=== PATIENT | male | born 1940 | race Caucasian/White ===

== ENCOUNTER 2020-04-11 16:53 | Inpatient (IN) | payer MEDICARE ==
[~2020-04-11] VITALS: Ht 172.7 cm; Wt 79.8 kg
--- NOTE | 2020-04-11 20:50 | NUR ---
BIBS FOR C/O INSOMNIA FOR THE [AST 2 DAYS, DENIED ANY PAIN OR DISCOMFORT. VSS. WILL CONT TO MONITOR
[2020-04-11 21:14] LABS: HEMATOCRIT 47 % (39-51); HEMOGLOBIN 15.4 g/dL (13.5-17.5); LYMPHOCYTES # (AUTO) 0.3 /CMM (0.8-4.8); LYMPHOCYTES % (AUTO) 4.4 % (20.0-44.0); MEAN CORPUSCULAR HGB CONC 33 g/dl (31.0-36.0); MEAN CORPUSCULAR VOLUME 101 fL (80-96); NEUTROPHILS # (AUTO) 4.5 /CMM (1.8-8.9); NEUTROPHILS % (AUTO) 77.6 % (43.0-81.0); PLATELET COUNT (AUTO) 163 /CMM (150-450); RED BLOOD CELL COUNT(AUTO) 4.61 MIL/uL (4.5-6.0); WHITE BLOOD COUNT (AUTO) 5.8 K/uL (4.3-11.0)
[2020-04-11 21:23] LABS: CALCIUM, SERUM 10.4 mg/dL (8.5-10.1); CARBON DIOXIDE 28 mmol/L (21-32); CHLORIDE 101 mmol/L (98-107); CREATININE 1.5 mg/dL (0.6-1.3); GLUCOSE 226 mg/dL (74-106); POTASSIUM 3.9 mmol/L (3.5-5.1); SODIUM SERUM 141 mmol/L (136-145); UREA NITROGEN, BLOOD 42 mg/dL (7-18)
--- NOTE | 2020-04-11 21:29 | NUR ---
DR DWYER ON THE PHONE WITH PT'S PCP
[2020-04-11 21:49] LABS: BAND % (MANUAL) 4 % (0.0-5.0); LYMPHOCYTES % (MANUAL) 6 % (16-48); MONOCYTES % (MANUAL) 8 % (0-11.0); NEUTROPHILS % (MANUAL) 82 (42-76)
[2020-04-11 21:50] LABS: ALBUMIN 4.3 g/dL (3.4-5.0); BILIRUBIN,DIRECT 0.2 mg/dL (0.0-0.2); BILIRUBIN,TOTAL 0.5 mg/dL (0.2-1.0); TOTAL PROTEIN, SERUM 7.5 g/dL (6.4-8.2)
--- NOTE | 2020-04-11 21:58 | NUR ---
COVID TEST OBTAINED AND SENT TO LAB
[2020-04-11] MEDS ORDERED: ONDANSETRON HCL/PF - ER 4 MG/2 ML VIAL IV ONE (22:00)
[2020-04-11] MEDS ORDERED: MORPHINE SULFATE INJ 2 MG/ML DISP.SYRIN IV ONE (22:00)
[2020-04-11] MEDS ORDERED: ONDANSETRON HCL/PF 4 MG/2 ML VIAL ONE (22:07)
--- NOTE | 2020-04-11 22:28 | NUR ---
URINE COLLECTED AND SENT TO LAB
[2020-04-11] MEDS ORDERED: IV NS 0.9% 1,000 ML IV ONE (22:30)
[2020-04-11 22:46] LABS: BILIRUBIN,URINE SMALL (NEGATIVE); COLOR,URINE YELLOW (YELLOW); LEUKOCYTE ESTERASE ,URINE NEGATIVE (NEGATIVE); NITRITE, URINE NEGATIVE (NEGATIVE); PH,URINE 5.5 (5.0-8.0); PROTEIN,URINE 100 mg/dl (NEGATIVE); UGLUCOSE NEGATIVE (NEGATIVE); UROBILINOGEN,URINE 0.2 EU/dL (0.2)
--- NOTE | 2020-04-11 22:48 | NUR ---
CALL FROM LAB, RAPID COVID NEGATIVE.
[2020-04-11 23:02] LABS: RBC,URINE 0-2 /HPF (0-2); SQUAMOUS EPITHELIAL CELL,UR None Seen /HPF (None Seen); WBC,URINE 0-2 /HPF (0-3); YEAST,URINE Few /HPF (None Seen)
[2020-04-11] MEDS ORDERED: ASPI-1169 PO (23:05)
[2020-04-11] MEDS ORDERED: ATOR20TA PO (23:05)
[2020-04-11 23:21] LABS: BACTERIA,URINE None seen /HPF (None Seen)
--- NOTE | 2020-04-11 23:45 | NUR ---
JUSTIN Bernal HOSPITALIST AT BED SIDE
[2020-04-12] MEDS ORDERED: CLONIDINE HCL 0.1 MG TABLET PO PRN (00:30)
[2020-04-12] MEDS ORDERED: ACETAMINOPHEN 325 MG TABLET PO PRN (00:30)
[2020-04-12] MEDS ORDERED: BISACODYL SUPP (10 MG) 10 MG/SUPP.RECT SUPP.RECT RC PRN (00:30)
[2020-04-12] MEDS ORDERED: DEXTROSE 50%-WATER 50 ML DISP.SYRIN IV PRN (00:30)
[2020-04-12] MEDS ORDERED: IV NS 0.9% 1,000 ML IV PRN (00:30)
[2020-04-12] MEDS ORDERED: Z GUARD REMEDY 2 OZ OINT TP PRN (00:30)
[2020-04-12] MEDS ORDERED: MAG HYDROX/AL HYDROX/SIMETH 30 ML UDC PO PRN (00:30)
[2020-04-12] MEDS ORDERED: ONDANSETRON HCL/PF 4 MG/2 ML VIAL IVP PRN (00:30)
[2020-04-12] MEDS ORDERED: MAGNESIUM HYDROXIDE 30 ML UDC PO PRN (00:30)
--- NOTE | 2020-04-12 01:01 | NUR ---
CALLED PHARMACY TO VERIFY THE ADMITTING ORDERS
[2020-04-12] MEDS ORDERED: ENOXAPARIN SODIUM 40 MG/0.4 ML DISP.SYRIN SQ ONE (02:45)
[2020-04-12] MEDS: ENOXAPARIN SODIUM 40 MG/0.4 ML DISP.SYRIN SQ SCH ×2 (02:50→22:30)
[2020-04-12] MEDS ORDERED: HYDROCODONE/APAP 5/325MG TABLET ONE ×2 (06:42→13:42)
[2020-04-12] MEDS: HYDROCODONE/APAP 5/325MG TABLET PO PRN ×4 (06:49→13:43)
--- NOTE | 2020-04-12 06:50 | NUR ---
pt with c/o lower back pain, requesting pain meidcation. norco given as ordered , will cont to monitor
[2020-04-12] MEDS: BLOOD SUGAR DIAGNOSTIC 1 EACH STRIP IN SCH ×4 (07:30→22:53)
[2020-04-12] MEDS: PANTOPRAZOLE 40 MG TABLET.DR PO SCH (07:30)
[2020-04-12] MEDS ORDERED: MORPHINE SULFATE INJ 2 MG/ML DISP.SYRIN IV PRN (08:30)
[2020-04-12] MEDS: DOCUSATE SODIUM 100 MG CAPSULE PO SCH (09:00)
[2020-04-12] MEDS: ASPIRIN 81 MG TAB.CHEW PO SCH (09:00)
--- NOTE | 2020-04-12 12:00 | NUR ---
PT RESTING CALMLY IN BED, ATE BREAKFAST AND NOW EATING LUNCH
[2020-04-12] MEDS: INSULIN REGULAR, HUMAN 100 UNIT/ML 3 ML VIAL SQ PRN ×2 (12:07→18:08)
[2020-04-12 12:45] LABS: BASOPHILS % (AUTO) 0.1 % (0.0-2.0); HEMATOCRIT 45 % (39-51); HEMOGLOBIN 14.8 g/dL (13.5-17.5); LYMPHOCYTES # (AUTO) 0.1 /CMM (0.8-4.8); LYMPHOCYTES % (AUTO) 1.9 % (20.0-44.0); MEAN CORPUSCULAR HGB CONC 33 g/dl (31.0-36.0); MEAN CORPUSCULAR VOLUME 101 fL (80-96); MONOCYTES # (AUTO) 0.6 /CMM (0.1-1.30); MONOCYTES % (AUTO) 9.2 % (2.0-12.0); NEUTROPHILS % (AUTO) 88.8 % (43.0-81.0); PLATELET COUNT (AUTO) 137 /CMM (150-450); RED BLOOD CELL COUNT(AUTO) 4.47 MIL/uL (4.5-6.0); WHITE BLOOD COUNT (AUTO) 6.8 K/uL (4.3-11.0)
[2020-04-12 13:05] LABS: ALBUMIN 3.7 g/dL (3.4-5.0); BILIRUBIN,TOTAL 0.6 mg/dL (0.2-1.0); CALCIUM, SERUM 9.7 mg/dL (8.5-10.1); CREATININE 1.3 mg/dL (0.6-1.3); MAGNESIUM 2.1 mg/dL (1.8-2.4); PHOSPHORUS 3.8 mg/dL (2.5-4.9); POTASSIUM 3.8 mmol/L (3.5-5.1); TOTAL PROTEIN, SERUM 6.6 g/dL (6.4-8.2)
--- NOTE | 2020-04-12 14:06 | NUR ---
GOT BED 309-2 RN IRMA
--- NOTE | 2020-04-12 15:00 | NUR ---
ER ADMIT PT RECEIVED AFTER REPORT RECEIVED FROM FARIBA BRADY. PT RESTING COMFORTABLY IN BED. NO S/S OR C/O PAIN OR DISTRESS NOTED. SIDE RAILS UP X2, CALL LIGHT LEFT WITHIN REACH. WILL CONTINUE PLAN OF CARE.
[2020-04-12 16:00] VITALS: BP 159/100
[2020-04-12] MEDS: IV D5/ 0.9% NACL 1,000 ML IV PRN (17:57)
[2020-04-12] MEDS: ENSURE ENLIVE CHOC 237 ML CAN PO SCH (17:58)
--- NOTE | 2020-04-12 19:54 | NUR ---
CHANGE OF SHIFT REPORT PT RESTING COMFORTABLY IN BED WITH EYES CLOSED. NO S/S OR C/O PAIN OR DISTRESS NOTED. SIDERAILS UP X2, CALL LIGHT LEFT WITHIN REACH. PT KEPT CLEAN, DRY, AND COMFORTABLE. NO SIGNIFICANT CHANGES SINCE ADMISSION. REPORT GIVEN TO GUNNAR RN
--- NOTE | 2020-04-12 20:54 | NUR ---
MSRN VERBALIZES STOMACH DISCOMFORTS REQUESTED MAALOX. ADMINISTERED. TIRED LOOKING SAFETY PRECAUTIONS EMPHASIZED, APPEARS TO UNDERSTAND. ISOLATION PRECAUTIONS OBSERVED. STATED DOES NOT WANT TO BE DISTURB ONCE HE IS ASLEEP. REMINDED HAS NIGHT MEDS POST 1 HR AFTER MAALOX. AGREED. REMINDED TO CALL STAFF FOR FURTHER ASSISTANCE OR DISCOMFORTS, CALL LIGHT USE REVIEWED WITH PATIENT. CLOSELY WATCHED.
[2020-04-12 21:05] VITALS: BP 143/88
[2020-04-12] MEDS: ATORVASTATIN 10 MG TABLET PO SCH (22:28)
[2020-04-12] MEDS: SENNOSIDES 8.6 MG TABLET PO SCH (22:29)
[2020-04-12] MEDS: MIRTAZAPINE 15 MG TABLET PO SCH (22:29)
--- NOTE | 2020-04-12 22:51 | NUR ---
MSRN BS 138. REFUSED SNACKS. DUE MEDS ADMINISTERED.
[2020-04-13] MEDS ORDERED: PIPERACILLIN /TAZOBACTAM 3.375 G in IV D5W 100 ML IV SCH (02:00)
[2020-04-13 02:30] VITALS: BP 152/89
--- NOTE | 2020-04-13 02:30 | NUR ---
MSRN MOVED TO ROOM 201 VIA BED WITH ALL ISOLATION PRECAUTIONARY MEASURES OBSERVED. ENDORSED TO RN.
--- NOTE | 2020-04-13 02:30 | NUR ---
MS RN NOTES RECEIVED PATIENT FROM MS3, ALERT AND ORIENTED X 4. VERBALLY RESPONSIVE AND ABLE TO FOLLOW DIRECTIONS, NO DISTRESS NOTED. DENIES PAIN/DISCOMFORT AT THIS TIME. WILL CONTINUE TO MONITOR.
--- NOTE | 2020-04-13 04:00 | NUR ---
MS RN NOTES COVID PCR SWAB DONE.
[2020-04-13 05:59] LABS: BILIRUBIN,URINE NEGATIVE (NEGATIVE); COLOR,URINE YELLOW (YELLOW); LEUKOCYTE ESTERASE ,URINE NEGATIVE (NEGATIVE); NITRITE, URINE NEGATIVE (NEGATIVE); PH,URINE 5.5 (5.0-8.0); PROTEIN,URINE 100 mg/dl (NEGATIVE); UGLUCOSE NEGATIVE (NEGATIVE); UROBILINOGEN,URINE 0.2 EU/dL (0.2)
[2020-04-13 06:07] LABS: BACTERIA,URINE None seen /HPF (None Seen); RBC,URINE 0-2 /HPF (0-2); SQUAMOUS EPITHELIAL CELL,UR Rare /HPF (None Seen); URINE AMORPHOUS URATE Few /HPF (None Seen)
[2020-04-13 06:15] LABS: CREATININE, URINE 219.8 MG/DL (30.0-125.0); URINE TOTAL PROTEIN 140.7 mg/dL (0-11.9)
[2020-04-13 06:22] LABS: EOSINOPHIL,URINE None Seen
[2020-04-13] MEDS: BLOOD SUGAR DIAGNOSTIC 1 EACH STRIP IN SCH ×4 (06:30→22:22)
[2020-04-13] MEDS: PANTOPRAZOLE 40 MG TABLET.DR PO SCH (06:31)
[2020-04-13] MEDS: INSULIN REGULAR, HUMAN 100 UNIT/ML 3 ML VIAL SQ PRN ×2 (06:32→22:31)
--- NOTE | 2020-04-13 06:45 | NUR ---
MS RN CLOSING NOTES PATIENT IN BED, ALERT AND ORIENTED X 4. AFEBRILE WITH NO S/S OF DISTRESS OBSERVED. RIGHT FOREARM G20 IV LINE PATENT AND FLUSHING WELL. NO COMPLAINTS OF PAIN/DISCOMFORT REPORTED AT THIS TIME. BED LOW AND LOCKED ON SEMI FOWLERS POSITION. CALL LIGHT IN REACH. WILL ENDORSE TO MORNING SHIFT FOR DANIELLE.
--- NOTE | 2020-04-13 07:30 | NUR ---
ms rn received on bed,awake,alert,oriented x4,not in any form of distress, noted to have distended,abdomen, hypoactive,denies pain at this time, will monitor patient.
[2020-04-13 08:00] VITALS: BP 144/68
[2020-04-13] MEDS: ENSURE ENLIVE CHOC 237 ML CAN PO SCH ×3 (08:00→17:00)
--- NOTE | 2020-04-13 08:50 | NUR ---
ms marcy carrera served,due meds given, barely tolerated, patient has episodes of vomiting x2
[2020-04-13 09:27] LABS: ALANINE AMINOTRANSFERASE 29 U/L (12-78); ALBUMIN 3.3 g/dL (3.4-5.0); ALKALINE PHOSPHATASE 51 U/L (46-116); ASPARTATE AMINOTRANSFERASE 40 U/L (15-37); BILIRUBIN,TOTAL 0.7 mg/dL (0.2-1.0); CALCIUM, SERUM 9.9 mg/dL (8.5-10.1); CARBON DIOXIDE 26 mmol/L (21-32); CHLORIDE 105 mmol/L (98-107); CREATININE 1.9 mg/dL (0.6-1.3); GLUCOSE 141 mg/dL (74-106); MAGNESIUM 2.4 mg/dL (1.8-2.4); PHOSPHORUS 3.6 mg/dL (2.5-4.9); POTASSIUM 4.1 mmol/L (3.5-5.1); SODIUM SERUM 144 mmol/L (136-145); TOTAL PROTEIN, SERUM 6.4 g/dL (6.4-8.2); UREA NITROGEN, BLOOD 61 mg/dL (7-18)
[2020-04-13 09:29] LABS: EOSINOPHILS % (AUTO) 0.1 % (0.0-6.0); HEMATOCRIT 46 % (39-51); HEMOGLOBIN 15.2 g/dL (13.5-17.5); LYMPHOCYTES # (AUTO) 0.2 /CMM (0.8-4.8); LYMPHOCYTES % (AUTO) 2.3 % (20.0-44.0); MEAN CORPUSCULAR HGB CONC 33 g/dl (31.0-36.0); MEAN CORPUSCULAR VOLUME 101 fL (80-96); MONOCYTES # (AUTO) 0.5 /CMM (0.1-1.30); MONOCYTES % (AUTO) 5.6 % (2.0-12.0); NEUTROPHILS # (AUTO) 8.5 /CMM (1.8-8.9); PLATELET COUNT (AUTO) 142 /CMM (150-450); RED BLOOD CELL COUNT(AUTO) 4.55 MIL/uL (4.5-6.0); WHITE BLOOD COUNT (AUTO) 9.2 K/uL (4.3-11.0)
[2020-04-13 09:44] LABS: CHOLESTEROL 100 mg/dL (<200); CREATINE KINASE, TOTAL 504 U/L (39-308); HDL CHOLESTEROL 67 mg/dL (40-60); LDL 24 mg/dL (0-99); TRIGLYCERIDES 53 mg/dL (30-150)
[2020-04-13] MEDS: HYDROCODONE/APAP 5/325MG TABLET PO PRN (09:58)
[2020-04-13] MEDS: DOCUSATE SODIUM 100 MG CAPSULE PO SCH (10:01)
--- NOTE | 2020-04-13 15:00 | NUR ---
ms rn poly small,patientabdomen is distended, with orders made and carried out.
[2020-04-13 16:00] VITALS: BP 132/55
--- NOTE | 2020-04-13 16:35 | NUR ---
ms rn went down to ct abdomen via wheelchair.
[2020-04-13] MEDS ORDERED: PIPERACILLIN /TAZOBACTAM 3.375 G in IV D5W 50 ML IV ONE (18:00)
[2020-04-13 18:43] LABS: CALCIUM, SERUM 10.1 mg/dL (8.5-10.1); CARBON DIOXIDE 26 mmol/L (21-32); CHLORIDE 104 mmol/L (98-107); CREATININE 2.6 mg/dL (0.6-1.3); GLUCOSE 187 mg/dL (74-106); POTASSIUM 4.1 mmol/L (3.5-5.1); SODIUM SERUM 144 mmol/L (136-145); UREA NITROGEN, BLOOD 72 mg/dL (7-18)
[2020-04-13 19:49] LABS: BASOPHILS # (AUTO) 0.1 /CMM (0.0-0.2); HEMATOCRIT 46 % (39-51); LYMPHOCYTES # (AUTO) 0.2 /CMM (0.8-4.8); MEAN CORPUSCULAR HGB CONC 33 g/dl (31.0-36.0); MEAN CORPUSCULAR VOLUME 102 fL (80-96); MONOCYTES # (AUTO) 0.6 /CMM (0.1-1.30); MONOCYTES % (AUTO) 6.1 % (2.0-12.0); NEUTROPHILS # (AUTO) 9.6 /CMM (1.8-8.9); NEUTROPHILS % (AUTO) 90.9 % (43.0-81.0); PLATELET COUNT (AUTO) 139 /CMM (150-450); RED BLOOD CELL COUNT(AUTO) 4.49 MIL/uL (4.5-6.0); WHITE BLOOD COUNT (AUTO) 10.5 K/uL (4.3-11.0)
[2020-04-13 20:00] VITALS: BP 153/92
--- NOTE | 2020-04-13 20:00 | NUR ---
RN NOTE PT RECEIVED IN BED. PT IS A/A/O X4. IS ON RA SATING 97% HAS UNLABORED BREATHING. SAFETY MEASURE IN PLACE BED AT LOWEST POSITION, LOCKED, SIDE RAILS UP X2, CALL LIGHT IN REACH.
[2020-04-13] MEDS ORDERED: PIPERACILLIN /TAZOBACTAM 2.25 G in IV D5W 50 ML IV SCH (21:00)
[2020-04-13] MEDS: MIRTAZAPINE 15 MG TABLET PO SCH (22:00)
[2020-04-13] MEDS: SENNOSIDES 8.6 MG TABLET PO SCH (22:00)
[2020-04-13] MEDS: ATORVASTATIN 10 MG TABLET PO SCH (22:00)
[2020-04-13] MEDS: ENOXAPARIN SODIUM 40 MG/0.4 ML DISP.SYRIN SQ SCH (22:00)
--- NOTE | 2020-04-13 22:25 | NUR ---
lovenox not administered, because pt has ng tube and drainage is brownish color.
[2020-04-14] MEDS ORDERED: LORAZEPAM INJ 2 MG/ML VIAL IV ONE (01:30)
--- NOTE | 2020-04-14 01:40 | NUR ---
PT HAD DIFFICULTY FALLING ASLEEP, RECEIVED ORDER FROM DR GALAVIZ ATIVAN 0.5 MG IV ONCE, ADMINISTERED BUT FORGOT TO SCAN.
[2020-04-14] MEDS: IV D5/ 0.9% NACL 1,000 ML IV PRN (01:56)
[2020-04-14] MEDS: PIPERACILLIN /TAZOBACTAM 3.375 G in IV D5W 100 ML IV SCH ×3 (02:05→17:03)
--- NOTE | 2020-04-14 02:05 | NUR ---
ZOSYN ADMINISTERED, ENTERED BARCODE MANUALLY BECAUSE PHARMACY CHANGED THE TIME AND RESCHEDULED IT,BUT NEW LABEL WAS NOT AVAILABLE.
--- NOTE | 2020-04-14 07:24 | NUR ---
RN NOTE PT STAYED STABLE, NO ACUTE CHANGES , REPORT GIVEN TO INCOMING SHIFT FOR DANIELLE.
--- NOTE | 2020-04-14 07:30 | NUR ---
TELE/RN OPENING NOTE Patient resting in bed, A&O x 2-3. No complaints of pain/discomfort at this time. Breathing even and non-labored on RA, no SOB noted. No cardiac distress noted. IV access noted on L hand#20 g, patent and intact, and flushing well. Sensation from all peripheral extremities intact. Bed locked to its lowest position, side rails x 2 up, call light in hand. Will continue with current medical management.
[2020-04-14 08:00] VITALS: BP 139/70
[2020-04-14] MEDS: ENSURE ENLIVE CHOC 237 ML CAN PO SCH ×3 (08:00→17:00)
--- NOTE | 2020-04-14 08:00 | NUR ---
MS/RN NOTE Dom Grullon [place] at bedside, assisted in NG tube insertion. NG tube inserted in the right nare 18 fr, 55 cm inserted and auscultated. Placed patient on bilateral soft wrist restraints since patient has been reported to pull lines and tubes per power and recovery shift engineer. Upon attempting to insert NG tube, patient was trying to pull it out. Will check circulation, temperature, and sensation around upper extremities every 2 hrs. Ordered stat chest x-ray for positive placement check. Addendum: 04/14/20 at 2117 by ZOEY METZGER RN Per [place], place NG tube on intermittent suction, coffee ground drainage noted.
[2020-04-14 08:07] LABS: PTH, INTACT 35 pg/mL (15-65)
[2020-04-14 08:34] LABS: BASOPHILS % (AUTO) 0.1 % (0.0-2.0); EOSINOPHILS % (AUTO) 0.1 % (0.0-6.0); HEMATOCRIT 46 % (39-51); HEMOGLOBIN 15.1 g/dL (13.5-17.5); LYMPHOCYTES # (AUTO) 0.3 /CMM (0.8-4.8); LYMPHOCYTES % (AUTO) 2.9 % (20.0-44.0); MEAN CORPUSCULAR HGB CONC 33 g/dl (31.0-36.0); MEAN CORPUSCULAR VOLUME 102 fL (80-96); MONOCYTES # (AUTO) 0.6 /CMM (0.1-1.30); MONOCYTES % (AUTO) 6.2 % (2.0-12.0); NEUTROPHILS # (AUTO) 8.5 /CMM (1.8-8.9); NEUTROPHILS % (AUTO) 90.7 % (43.0-81.0); PLATELET COUNT (AUTO) 148 /CMM (150-450); RED BLOOD CELL COUNT(AUTO) 4.49 MIL/uL (4.5-6.0); WHITE BLOOD COUNT (AUTO) 9.3 K/uL (4.3-11.0)
[2020-04-14 08:59] LABS: CALCIUM, SERUM 9.9 mg/dL (8.5-10.1); CARBON DIOXIDE 22 mmol/L (21-32); CHLORIDE 104 mmol/L (98-107); CREATININE 3.5 mg/dL (0.6-1.3); GLUCOSE 161 mg/dL (74-106); POTASSIUM 4.1 mmol/L (3.5-5.1); SODIUM SERUM 142 mmol/L (136-145)
[2020-04-14] MEDS: DOCUSATE SODIUM 100 MG CAPSULE PO SCH (09:00)
[2020-04-14] MEDS: ASPIRIN 81 MG TAB.CHEW PO SCH (09:00)
[2020-04-14] MEDS: BLOOD SUGAR DIAGNOSTIC 1 EACH STRIP IN SCH ×4 (09:37→22:31)
[2020-04-14] MEDS: INSULIN REGULAR, HUMAN 100 UNIT/ML 3 ML VIAL SQ PRN ×2 (09:38→13:09)
[2020-04-14 10:24] LABS: UREA NITROGEN, BLOOD 93 mg/dL (7-18)
[2020-04-14] MEDS ORDERED: IV NS 0.9% 1,000 ML IV ONE (11:00)
[2020-04-14] MEDS ORDERED: HEPARIN SODIUM, PORCINE 5000 UNITS/1 ML VIAL SQ SCH (12:00)
[2020-04-14] MEDS ORDERED: DIATR MEGLU/DIATRIZOATE SODIUM 120 ML BOTTLE (GASTROGRAPHIN) ONE (12:25)
--- NOTE | 2020-04-14 17:00 | NUR ---
MS/RN NOTE Dom GLAZING SUPERINTENDENT spoke with Dr. Grimes regarding patient's condition, states patient will be transferred to another hospital for higher level of care, awaiting for case management for arrangement.
[2020-04-14] MEDS: IV NS 0.9% 1,000 ML IV PRN (17:04)
--- NOTE | 2020-04-14 19:30 | NUR ---
MS/RN CLOSING NOTE Patient resting in bed, A&O x 2-3. All needs met and attended to. No complaints of pain/discomfort at this time. Breathing even and non-labored on RA, no SOB noted. No cardiac distress noted. IV access noted on L hand#20 g, patent and intact, and flushing well. NG tube on right nare in place, 70 cm inserted, on intermittent suction, coffee-ground drainage noted. Sensation and circulation from all peripheral extremities intact. Fall precautions maintained, will endorse to editor greeting card nurse.
--- NOTE | 2020-04-14 19:30 | NUR ---
MS/RN OPENING NOTES RECEIVED PATIENT IN BED RESTING. PATIENT IS ALERT AND ORIENTED X 2. NO SIGNS OF SOB OR RESPIRATORY DISTRESS NOTED. PATIENT IN NO SIGNS OF DISTRESS. PATIENT HAS IV ACCESS ON LEFT HAND #20G INTACT FLUSHING WELL. NG TUBE IN PLACE RIGHT NARES AT 70CM, INTER. SUCTION COFFEE GROUND DRAINAGE. BILATERAL RESTRAINTS IN PLACE CIRCULATION GOOD. SAFETY MEASURES ARE IN PLACE, BED IS LOCKED AND PLACED IN THE LOW POSITION, SIDE RAILS UP X 2. CALL LIGHT IS WITHIN REACH WILL MONITOR THROUGH OUT SHIFT.
[2020-04-14] MEDS: SENNOSIDES 8.6 MG TABLET PO SCH (21:26)
[2020-04-14] MEDS: MIRTAZAPINE 15 MG TABLET PO SCH (21:26)
[2020-04-14] MEDS: ATORVASTATIN 10 MG TABLET PO SCH (21:26)
[2020-04-14] MEDS: ENOXAPARIN SODIUM 40 MG/0.4 ML DISP.SYRIN SQ SCH (21:26)
[2020-04-14 21:46] VITALS: BP 157/65
[2020-04-15] MEDS: PIPERACILLIN /TAZOBACTAM 3.375 G in IV D5W 100 ML IV SCH ×3 (01:56→18:06)
[2020-04-15 04:00] VITALS: BP 152/75
--- NOTE | 2020-04-15 05:45 | NUR ---
MS/RN NOTES PATIENT REMOVED BILATERAL SOFT WRIST RESTRAINTS AND PULLED OUT NG TUBE. PATIENT IS ALERT AND ORIENTED X 4. TWO NURSES ATTEMPTED TO REINSERT NEW NG TUBE, PATIENT REFUSED. RISK AND BENEFITS HAVE BEEN EXPLAINED TO THE PATIENT. MD HAS BEEN NOTIFIED. PATIENT IN NO ACUTE DISTRESS. WILL CONTINUE TO MONITOR.
[2020-04-15 06:06] LABS: *SPE A/G RATIO 1.2 (0.7-1.7); *SPE ALBUMIN 3.1 g/dL (2.9-4.4); *SPE ALPHA-1-GLOBULIN 0.5 g/dL (0.0-0.4); *SPE ALPHA-2-GLOBULIN 0.9 g/dL (0.4-1.0); *SPE BETA GLOBULIN 0.8 g/dL (0.7-1.3); *SPE GLOBULIN, TOTAL 2.6 g/dL (2.2-3.9); *SPE M-SPIKE Not Observed g/dL (Not Observed); *SPEGAMMA GLOBULIN 0.5 g/dL (0.4-1.8)
--- NOTE | 2020-04-15 06:55 | NUR ---
MS/RN CLOSING NOTES PATIENT IN BED SLEEPING. PATIENT IS ALERT AND ORIENTED X 4. NO SIGNS OF SOB OR RESPIRATORY DISTRESS NOTED. PATIENT IN NO SIGNS OF DISTRESS. PATIENT HAS IV ACCESS ON LEFT HAND #20G INTACT FLUSHING WELL. BILATERAL RESTRAINTS HAVE BEEN REMOVED AT THIS TIME. PATIENT REMOVED NG TUBE THIS MORNING, PATIENT STILL REMOVED TO HAVE NEW ONE REINSERTED. NEEDS HAVE BEEN MET DURING SHIFT. SAFETY MEASURES ARE IN PLACE, BED IS LOCKED AND PLACED IN THE LOW POSITION, SIDE RAILS UP X 2. CALL LIGHT WITHIN REACH. WILL ENDORSE CARE TO DAY SHIFT NURSE.
--- NOTE | 2020-04-15 07:30 | NUR ---
MS RN OPENING NOTES BEDSIDE ENDORSEMENT DONE. PATIENT IS IN BED SLEEPING, ABLE TO BE AWAKENED. ALERT AND ORIENTED X2-3. BREATHING EVEN AND UNLABORED, TOLERATING ROOM AIR. NO RESPIRATORY DISTRESS NOTED. IV LINE ON LEFT HAND #20G INTACT AND PATENT. BILATERAL RESTRAINTS HAVE BEEN REMOVED AT THIS TIME PER PREVIOUS SHIFT RN REPORT. PATIENT HAS NO NG TUBE THIS SECONDARY TO REPORTED REMOVAL. TRIED TO ASK PATIENT IF NGT CAN BE REINSERTED BUT PATIENT REFUSED. SAFETY MEASURES IN PLACE: BED IS LOCKED AND ON LOWEST POSITION, SIDE RAILS UP X 2, CALL LIGHT WITHIN REACH. WILL CONTINUE TO MONITOR.
[2020-04-15] MEDS: BLOOD SUGAR DIAGNOSTIC 1 EACH STRIP IN SCH ×4 (07:32→22:00)
[2020-04-15 07:39] LABS: BASOPHILS % (AUTO) 0.1 % (0.0-2.0); HEMATOCRIT 42 % (39-51); LYMPHOCYTES # (AUTO) 0.3 /CMM (0.8-4.8); LYMPHOCYTES % (AUTO) 2.4 % (20.0-44.0); MEAN CORPUSCULAR HGB CONC 33 g/dl (31.0-36.0); MEAN CORPUSCULAR VOLUME 101 fL (80-96); MONOCYTES # (AUTO) 0.7 /CMM (0.1-1.30); MONOCYTES % (AUTO) 6.4 % (2.0-12.0); NEUTROPHILS # (AUTO) 9.4 /CMM (1.8-8.9); NEUTROPHILS % (AUTO) 91.1 % (43.0-81.0); PLATELET COUNT (AUTO) 138 /CMM (150-450); RED BLOOD CELL COUNT(AUTO) 4.19 MIL/uL (4.5-6.0); WHITE BLOOD COUNT (AUTO) 10.4 K/uL (4.3-11.0)
[2020-04-15 08:00] VITALS: BP 130/50
[2020-04-15] MEDS: ENSURE ENLIVE CHOC 237 ML CAN PO SCH ×3 (08:00→16:00)
[2020-04-15] MEDS: DOCUSATE SODIUM 100 MG CAPSULE PO SCH (08:04)
--- NOTE | 2020-04-15 08:29 | NUR ---
RN NOTES PATIENT FOR SCHEDULED NUCLEAR MEDICINE MYOCARDIAL STRESS TEST. UNABLE TO OBTAIN CONSENT FROM PATIENT HE IS SLEEPING; SPOKE W/ RP/FRIEND OF PATIENT, PIERO CAGE, AND EXPLAINED PROCEDURE FOR PATIENT, OBTAINED TELEPHONE CONSENT, WITNESSED BY ME AND ANOTHER RN MAXIMUS. CONSENT FROM PLACED IN CHART. MICHAEL FROM RADIOLOGY AWARE AND WILL ORDER NUCLEAR ISOTOPE.
[2020-04-15 08:54] LABS: CALCIUM, SERUM 9.4 mg/dL (8.5-10.1); CARBON DIOXIDE 20 mmol/L (21-32); CHLORIDE 106 mmol/L (98-107); CREATININE 3.9 mg/dL (0.6-1.3); GLUCOSE 175 mg/dL (74-106); SODIUM SERUM 143 mmol/L (136-145)
[2020-04-15 08:55] LABS: UREA NITROGEN, BLOOD 123 mg/dL (7-18)
--- NOTE | 2020-04-15 11:54 | NUR ---
RN NOTES PATIENT WAS SEEN BY DR. FERNANDO TODAY, FOR POSSIBLE EGD PROCEDURE. PROCEDURE EXPLAINED TO PATIENT AND CONSENT FORM SIGNED AND PLACED IN PATIENT'S CHART.
[2020-04-15 12:00] VITALS: BP 128/61
[2020-04-15] MEDS: INSULIN REGULAR, HUMAN 100 UNIT/ML 3 ML VIAL SQ PRN ×2 (12:25→17:22)
--- NOTE | 2020-04-15 12:26 | NUR ---
RN NOTES BS IS 139MG/DL W/ 2U PER COVERAGE, NOT GIVEN AT THIS TIME BECAUSE PATIENT IS NPO AND FOR SCHEDULED PROCEDURE TODAY. NO S/SX OF HYPO/HYPERGLYCEMIA NOTED. PATIENT RESTING AT THIS TIME. WILL CONTINUE TO MONITOR.
--- NOTE | 2020-04-15 14:50 | NUR ---
RN NOTES TRIED TO RE-INSERT NGT TUBE PATIENT ALLOWED REINSERTION PROCEDURE THIS TIME. ABLE TO INSERT NGT; STAT CXR FOR PLACEMENT CHECK PLACED. WILL CONTINUE TO MONITOR. Addendum: 04/15/20 at 1820 by KERRY ARMENTA RN NGT INSERTED ON Angelica KAPOOR.
--- NOTE | 2020-04-15 16:20 | NUR ---
RN NOTES CXR CONFIRMED PLACEMENT OF NGT W/ RECOMMENDATION TO ADVANCE NGT BY 9CM; TRIED TO ADVANCE FURTHER BUT NOTED W/ RESISTANCE. DR. MANCERA MADE AWARE. PATIENT CURRENTLY PLACED ON LOW INTERMITTENT SUCTION, W/ COFFEE GROUND ASPIRATE NOTED. PATIENT HAS NO COMPLAINT OF NAUSEA/VOMITING AND WAS REMINDED NOT TO PULL OUT NGT, VERBALIZED UNDERSTANDING. WILL CONTINUE TO MONITOR.
--- NOTE | 2020-04-15 18:15 | NUR ---
RN NOTES PATIENT REQUESTED FOR ICE CHIPS JUST TO KEEP MOUTH WET; PROVIDED TO PATIENT AND PATIENT SPIT OUT MELTED ICE CHIP. TOTAL GASTRIC DRAINAGE ASPIRATED AROUND 50CC, COFFEE-GROUND IN COLOR/CONSISTENCY. NO COMPLAINT OF NAUSEA/VOMITING AT THIS TIME. WILL CONTINUE TO MONITOR.
--- NOTE | 2020-04-15 19:20 | NUR ---
MS RN CLOSING NOTES PATIENT IS RESTING IN BED, AWAKE AND VERBALLY RESPONSIVE. ALERT AND ORIENTED X2, ABLE TO MAKE NEEDS KNOWN. BREATHING EVEN AND UNLABORED, TOLERATING ROOM AIR. NO RESPIRATORY DISTRESS NOTED. IV LINE ON LEFT HAND #20G INTACT AND PATENT. STILL WITH BILATERAL SOFTWRIST RESTRAINTS SECONDARY TO EPISODE OF TRYING TO REMOVE NGT. NGT FR16 IN PLACE, CURRENTLY ON LOW INTERMITTENT SUCTION. CURRENTLY NPO WELL. KEPT CLEAN AND COMFORTABLE SAFETY MEASURES MAINTAINED: BED IS LOCKED AND ON LOWEST POSITION, SIDE RAILS UP X 2, CALL LIGHT WITHIN REACH. ENDORSED TO DRYING OVEN ATTENDANT RN FOR DANIELLE.
--- NOTE | 2020-04-15 20:00 | NUR ---
MS RN OPENING NOTES: RECEIVED PATIENT IN BED, ASLEEP,AROUSABLE, A/O X4. PATIENT [facility]S [facility]. PATIENT STATED HE THAT HE WANTS THE RESTRAINTS TO BE REMOVED, AND HE PROMISED NOT TO PULL THE NGT AGAIN. BILATERAL WRISTS RESTRAINTS DISCONTINUED. NO S/S OF DISTRESS NOTED. HOB ELEVATED. CALL LIGHT WITHIN REACH BED ALARM ON. BED INLOWEST AND LOCKED POSITION. WITH RIGHT NARE NGT INTACT DRAINING A BROWNINS-BLACKISH OUTPUT, CONNECTED TO LOW INTERMITTENT SUCTION.
[2020-04-15 20:51] VITALS: BP 151/65
[2020-04-15] MEDS: ATORVASTATIN 10 MG TABLET PO SCH (22:00)
[2020-04-15] MEDS: ENOXAPARIN SODIUM 40 MG/0.4 ML DISP.SYRIN SQ SCH (22:00)
[2020-04-15] MEDS: SENNOSIDES 8.6 MG TABLET PO SCH (22:00)
[2020-04-15] MEDS: MIRTAZAPINE 15 MG TABLET PO SCH (22:00)
--- NOTE | 2020-04-15 23:11 | NUR ---
PATIENT REFUSED THE LOVENOX DR GALAVIZ AWARE.
--- NOTE | 2020-04-15 23:56 | NUR ---
RECEIVED ORDER FROM DR GUILLAUME CERVANTES: ZARI FOR ICE [employer].
[2020-04-16] MEDS ORDERED: ZOLPIDEM TARTRATE 5 MG TABLET PO ONE
[2020-04-16] MEDS: PIPERACILLIN /TAZOBACTAM 3.375 G in IV D5W 100 ML IV SCH ×3 (01:34→17:54)
[2020-04-16] MEDS: IV NS 0.9% 1,000 ML IV PRN ×3 (01:34→20:42)
--- NOTE | 2020-04-16 06:21 | NUR ---
MS RN CLOSING NOTES: PATIENT IN BED, AWAKE, A/O X4. NO S/S OF DISTRESS NOTED. CALL LIGHT WITHIN REACH. BED ALARM ON. BED IN LOWEST AND LOCKED POSITION. NGT INTACT, WITH BLACKISH OUTPUT,DRAINED 100ML AND RECORDED. NGT KEPT ON LOW INTERMITTENT SUCTION. TOLERATED ICE CHIPS. DVT PUMP PLACED ON BOTH LEGS.
--- NOTE | 2020-04-16 07:15 | NUR ---
RN notes Received patient in bed alert and awake oriented x4. Patient weak. Hob elevated. Remains on npo except ice chips. Left fa # 20 intact and patent infusing ns at 150ml/hr. Remain on LIS to left nare francisco well. Bed in lowest position, locked. Bed alarm on. Call light within reach. Able to verbalize needs.
[2020-04-16] MEDS: BLOOD SUGAR DIAGNOSTIC 1 EACH STRIP IN SCH ×3 (07:29→17:30)
[2020-04-16] MEDS: ENSURE ENLIVE CHOC 237 ML CAN PO SCH ×3 (08:00→17:00)
[2020-04-16] MEDS: DOCUSATE SODIUM 100 MG CAPSULE PO SCH (08:50)
[2020-04-16] MEDS: ASPIRIN 81 MG TAB.CHEW PO SCH (08:50)
[2020-04-16] MEDS ORDERED: TPN/PPN PER PHARMACY IV PRN (12:30)
[2020-04-16] MEDS: INSULIN REGULAR, HUMAN 100 UNIT/ML 3 ML VIAL SQ PRN ×3 (12:56→23:56)
[2020-04-16 13:17] LABS: BASOPHILS # (AUTO) 0.1 /CMM (0.0-0.2); BASOPHILS % (AUTO) 0.6 % (0.0-2.0); EOSINOPHILS % (AUTO) 0.1 % (0.0-6.0); HEMATOCRIT 45 % (39-51); HEMOGLOBIN 14.4 g/dL (13.5-17.5); LYMPHOCYTES # (AUTO) 0.3 /CMM (0.8-4.8); MEAN CORPUSCULAR HGB CONC 32 g/dl (31.0-36.0); MEAN CORPUSCULAR VOLUME 103 fL (80-96); MONOCYTES # (AUTO) 1.1 /CMM (0.1-1.30); MONOCYTES % (AUTO) 7.2 % (2.0-12.0); NEUTROPHILS # (AUTO) 13.3 /CMM (1.8-8.9); NEUTROPHILS % (AUTO) 90.1 % (43.0-81.0); PLATELET COUNT (AUTO) 111 /CMM (150-450); RED BLOOD CELL COUNT(AUTO) 4.36 MIL/uL (4.5-6.0); WHITE BLOOD COUNT (AUTO) 14.7 K/uL (4.3-11.0)
[2020-04-16 13:22] LABS: CALCIUM, SERUM 8.6 mg/dL (8.5-10.1); CARBON DIOXIDE 20 mmol/L (21-32); CHLORIDE 109 mmol/L (98-107); CREATININE 3.4 mg/dL (0.6-1.3); GLUCOSE 191 mg/dL (74-106); POTASSIUM 3.9 mmol/L (3.5-5.1); SODIUM SERUM 147 mmol/L (136-145)
[2020-04-16 13:25] LABS: UREA NITROGEN, BLOOD 135 mg/dL (7-18)
[2020-04-16 13:28] LABS: ALANINE AMINOTRANSFERASE 26 U/L (12-78); ALBUMIN 2.7 g/dL (3.4-5.0); ALKALINE PHOSPHATASE 58 U/L (46-116); ASPARTATE AMINOTRANSFERASE 18 U/L (15-37); BILIRUBIN,TOTAL 0.8 mg/dL (0.2-1.0); TOTAL PROTEIN, SERUM 5.8 g/dL (6.4-8.2)
[2020-04-16 13:37] LABS: PHOSPHORUS 5.3 mg/dL (2.5-4.9)
[2020-04-16] MEDS ORDERED: DEXTROSE 50%-WATER 50 ML DISP.SYRIN IV PRN (15:00)
[2020-04-16 15:05] LABS: ALBUMIN 2.7 g/dL (3.4-5.0); PREALBUMIN 10.7 MG/DL (18.0-35.7)
[2020-04-16 16:00] VITALS: BP 138/72
[2020-04-16 16:28] LABS: HEMOGLOBIN 15.2 g/dL (13.5-17.5)
--- NOTE | 2020-04-16 18:32 | NUR ---
RN Note Relayed to Dr. Grullon regarding unavailability of PICC nurse with Pharmacy recommendations for NS @ 100 ml/hr with D10 at 40 ML/HR. Order verified with Dr. Grullon and carried out.
[2020-04-16] MEDS ORDERED: IV 10% DEXTROSE 1,000 ML IV PRN (19:00)
[2020-04-16] MEDS ORDERED: IV NS 0.9% 1,000 ML IV PRN (19:00)
--- NOTE | 2020-04-16 19:00 | NUR ---
RN NOTES PATIENT RESTING COMFORTABLY IN BED. HOB ELEVATED. DENIES ANY C/O PAIN NOR DISCOMFORT AT THIS TIME. LEFT FA # 20 INTACT AND PATENT.REMAIN ON LOW INTERMITTENT SUCTION WITH COFFEE GROUND. BED IN LOWEST POSITION, LOCKED. AMBULATORY WITH ASSISTANCE. PER PATIENT HE HAD AN EPISODE OF SMALL STOOL WHEN HE USED [place] BATHROOM. CALL LIGHT WITHIN REACH. IN NO APPARENT DISTRESS.
--- NOTE | 2020-04-16 19:15 | NUR ---
RN NOTES: RECEIVED PATIENT ASLEEP ON BED, WITH NGT ON CONTINUOS SUCTION AT 25 MMHG WITH DRAINAGE AT 600 CC LEVEL BROWNISH IN COLOR, ON O2 AT 2L/MIN VIA NC SPO2 AT 98%, ON NPO,ICE CHIPS ALLOWED. IV CANNULA ON LFA G#20 PATENT.PER ENDORSEMENT HE IS FOR PICC LINE INSERTION AT AROUND 2100 NO DEFINITE TIME, ASLEEP.ON CLOSE WATCH, BED LOW AND LOCKED, CALL LIGHT WITHIN EASY REACH , NON LABORED BREATHING. Addendum: 04/16/20 at 2104 by IQRA DILLARD RN RN NOTES: ADDITIONAL NOTES: -TO START TPN TOMORROW MORNING, ASTRONOMY PROFESSOR AWARE. Addendum: 04/16/20 at 2115 by IQRA DILLARD RN RN NOTES:CORRECTION - PATIENT IS ON NGT-LOW INTERMITTENT SUCTION NOT ON CONTINUOS SUCTION. -FOR TRANSFER TO TERTIARY LEVEL OF CARE - STILL AWAITING FOR PLACEMENT, FOR POSSIBLE TRANSFER FOR HIGHER LEVEL OF CARE.
[2020-04-16 20:00] VITALS: BP 128/80
--- NOTE | 2020-04-16 20:43 | NUR ---
RN NOTES: IVF OF NS AT 110 ML/HR COMPLETED, REPLACED WITH NEW BAG OF NS AT 110 ML/HR AND IVF OF D10%W STARTED AT 40 ML/HR, BOTH MANUALLY ENTERED, UNABLE TO SCAN. -BOTH IVF STARTED VIA INFUSION PUMP.
[2020-04-16] MEDS ORDERED: TPN BAG #1 IV SCH ×2 (22:00)
--- NOTE | 2020-04-16 22:20 | NUR ---
RN NOTE: -AT 2210 PATIENT WAS TRANSFERRED TO [facility]-2, ENDORSEMENT GIVEN TO VIV/JOSE ANTONIO TOGETHER WITH MEDICINES AND BELONGINGS OF THE PATIENT.
[2020-04-16] MEDS: ATORVASTATIN 10 MG TABLET PO SCH (23:13)
[2020-04-16] MEDS: MIRTAZAPINE 15 MG TABLET PO SCH (23:14)
[2020-04-16] MEDS: SENNOSIDES 8.6 MG TABLET PO SCH (23:14)
[2020-04-16] MEDS: LORAZEPAM INJ 2 MG/ML VIAL IVP PRN (23:38)
[2020-04-16] MEDS: ENOXAPARIN SODIUM 30 MG/0.3 ML DISP.SYRIN SQ SCH (23:39)
[2020-04-17] MEDS: BLOOD SUGAR DIAGNOSTIC 1 EACH STRIP IN SCH ×4 (00:04→18:11)
[2020-04-17] MEDS: PIPERACILLIN /TAZOBACTAM 3.375 G in IV D5W 100 ML IV SCH ×3 (03:55→18:12)
--- NOTE | 2020-04-17 04:15 | NUR ---
PT REMOVED NGT FROM RIGHT NARE. REINSERTED 14 FR NGT TO LEFT NARE AT 50 CM PLACEMENT CONFIRMED WITH AUSCULTATION AND ASPIRATION DRAINING CLEAR THICK LIQUID WITH POCKETS OF BROWN DEBRIS/ZACH. PT TOLERATED PROCEDURE WELL.
[2020-04-17] MEDS: IV NS 0.9% 1,000 ML IV PRN (05:45)
[2020-04-17] MEDS: INSULIN REGULAR, HUMAN 100 UNIT/ML 3 ML VIAL SQ PRN ×3 (06:46→18:39)
[2020-04-17 08:00] VITALS: BP 127/74
[2020-04-17] MEDS: ENSURE ENLIVE CHOC 237 ML CAN PO SCH ×3 (08:00→17:00)
[2020-04-17] MEDS: DOCUSATE SODIUM 100 MG CAPSULE PO SCH (09:00)
[2020-04-17 10:14] LABS: BASOPHILS # (AUTO) 0.2 /CMM (0.0-0.2); BASOPHILS % (AUTO) 1.1 % (0.0-2.0); HEMATOCRIT 48 % (39-51); LYMPHOCYTES # (AUTO) 0.2 /CMM (0.8-4.8); LYMPHOCYTES % (AUTO) 1.3 % (20.0-44.0); MEAN CORPUSCULAR HGB CONC 31 g/dl (31.0-36.0); MEAN CORPUSCULAR VOLUME 104 fL (80-96); MONOCYTES # (AUTO) 0.6 /CMM (0.1-1.30); MONOCYTES % (AUTO) 3.3 % (2.0-12.0); NEUTROPHILS # (AUTO) 16.6 /CMM (1.8-8.9); NEUTROPHILS % (AUTO) 94.3 % (43.0-81.0); PLATELET COUNT (AUTO) 103 /CMM (150-450); RED BLOOD CELL COUNT(AUTO) 4.58 MIL/uL (4.5-6.0); WHITE BLOOD COUNT (AUTO) 17.6 K/uL (4.3-11.0)
[2020-04-17 10:26] LABS: ALANINE AMINOTRANSFERASE 26 U/L (12-78); ALBUMIN 2.4 g/dL (3.4-5.0); ALKALINE PHOSPHATASE 57 U/L (46-116); ASPARTATE AMINOTRANSFERASE 21 U/L (15-37); BILIRUBIN,TOTAL 0.7 mg/dL (0.2-1.0); CALCIUM, SERUM 8.4 mg/dL (8.5-10.1); CARBON DIOXIDE 22 mmol/L (21-32); CHLORIDE 111 mmol/L (98-107); CREATININE 2.8 mg/dL (0.6-1.3); GLUCOSE 217 mg/dL (74-106); MAGNESIUM 3.1 mg/dL (1.8-2.4); PHOSPHORUS 5.6 mg/dL (2.5-4.9); POTASSIUM 3.6 mmol/L (3.5-5.1); SODIUM SERUM 146 mmol/L (136-145); TOTAL PROTEIN, SERUM 5.6 g/dL (6.4-8.2)
[2020-04-17 10:29] LABS: UREA NITROGEN, BLOOD 125 mg/dL (7-18)
[2020-04-17 16:00] VITALS: BP 130/72
[2020-04-17] MEDS ORDERED: TPN BAG #1 IV SCH ×2 (17:00)
[2020-04-17] MEDS: FAT EMULSION 20% 500 ML in PREMIX 1 EA IV SCH (17:34)
--- NOTE | 2020-04-17 18:00 | NUR ---
received pt. in am,alert and oriented.ng draining lrg. amt.brown drainage,hob elevated.iv's infusing.vs stable.no acute distress.hooked up to tpn.
--- NOTE | 2020-04-17 19:45 | NUR ---
MS RN NOTES RECEIVED ON BED A/O X4,BREATHING REGULAR,NOT IN ANY FORM OF DISTRESS.NGT LEFT NARES IN PLACE DRAINING DARK OUTPUT.NPO STATUS,OKAY WITH CHIPS.WITH RIGHT ARM PICC LINE,LIPIDS INFUSING AT 25ML/HR RATE ALONG WITH ALONG WITH TPN AT 40ML/HR RATE VIA IV PUMP.IV ABX INFUSING LEFT ARM SALINE LOCK VIA IV PUMP.CALL LIGHT IN REACH,NEEDS ANTICIPATED.
[2020-04-17 20:00] VITALS: BP 140/66
[2020-04-17] MEDS: SENNOSIDES 8.6 MG TABLET PO SCH (21:20)
[2020-04-17] MEDS: MIRTAZAPINE 15 MG TABLET PO SCH (21:20)
[2020-04-17] MEDS: ATORVASTATIN 10 MG TABLET PO SCH (21:20)
[2020-04-17] MEDS: ENOXAPARIN SODIUM 30 MG/0.3 ML DISP.SYRIN SQ SCH (21:23)
[2020-04-18] MEDS: BLOOD SUGAR DIAGNOSTIC 1 EACH STRIP IN SCH ×5 (00:19→23:40)
[2020-04-18] MEDS: INSULIN REGULAR, HUMAN 100 UNIT/ML 3 ML VIAL SQ PRN ×5 (00:27→23:43)
[2020-04-18] MEDS: PIPERACILLIN /TAZOBACTAM 3.375 G in IV D5W 100 ML IV SCH ×3 (02:36→18:32)
[2020-04-18] MEDS: LORAZEPAM INJ 2 MG/ML VIAL IVP PRN (03:37)
--- NOTE | 2020-04-18 03:37 | NUR ---
YARN SALVAGER NOTES FEELING ANXIOUS,ATIVAN 0.5MG IV GIVEN ORDERED.
--- NOTE | 2020-04-18 04:00 | NUR ---
CLOCK REPAIRER NOTES MORNING CARE RENDERED WITH FRANTZ MOREL,TOLERATED WELL.NGT IN PLACE TO RODOL[place].
--- NOTE | 2020-04-18 07:04 | NUR ---
MS RN NOTES ON BED,SLEPT WITH INTERVALS,ASKING FOR ICE CHIPS,NGT IN PLACE,DRAINS WELL WITH 100ML DARK BROWN OUT PUT.HOB ELEVATED.NO VOMITING NOTED.CALL LIGHT IN REACH,NEEDS ATTENDED.
--- NOTE | 2020-04-18 07:31 | NUR ---
MS OPENING NOTES RECEIVED PATIENT RESTING IN BED, A/OX3-4 ON RA BREATHING EVEN AND UNLABORED, NO ACUTE RESPIRATORY DISTRESS NOTED. NO C/O PAIN OR DISCOMFOT AT THIS TIME. IV TO LT FA #20 PATENT AND INTACT. RT ARM [address] IN [address]. INFUSING TPN 40ML AND LIPIDS. BED IS AT LOW POSITION AND LOCKED WITH SIDE RAILS UPX2 AND CALL LIGHT WITHIN REACH. ALL SAFETY MEASURES IN PLACE. WILL CONTINUE TO MONITOR PATIENT THROUGH OUT SHIFT
[2020-04-18 08:00] VITALS: BP 105/63
[2020-04-18] MEDS: ENSURE ENLIVE CHOC 237 ML CAN PO SCH ×3 (08:04→16:56)
[2020-04-18 08:24] LABS: CARBON DIOXIDE 21 mmol/L (21-32); CHLORIDE 109 mmol/L (98-107); CREATININE 2.5 mg/dL (0.6-1.3); GLUCOSE 227 mg/dL (74-106); MAGNESIUM 2.6 mg/dL (1.8-2.4); PHOSPHORUS 3.5 mg/dL (2.5-4.9); POTASSIUM 3.1 mmol/L (3.5-5.1); SODIUM SERUM 144 mmol/L (136-145)
[2020-04-18 08:57] LABS: UREA NITROGEN, BLOOD 119 mg/dL (7-18)
--- NOTE | 2020-04-18 08:57 | NUR ---
LAB CRITICAL REPORT RECEIVED CALL FROM PATIENCE FROM LAB WITH CRITICAL BUN 119 NOTIFIED
[2020-04-18] MEDS: DOCUSATE SODIUM 100 MG CAPSULE PO SCH (09:00)
[2020-04-18] MEDS: ASPIRIN 81 MG TAB.CHEW PO SCH (09:00)
[2020-04-18] MEDS: POTASSIUM CL. PREMIX PERIPHER. 50 ML IV SCH ×3 (10:28→12:07)
[2020-04-18 16:00] VITALS: BP 93/51
[2020-04-18] MEDS ORDERED: TPN BAG #2 IV SCH ×2 (17:00)
--- NOTE | 2020-04-18 19:30 | NUR ---
MS/RN OPENING NOTES RECEIVED PATIENT RESTING IN BED. REPORT GIVEN BY DAY SHIFT NURSE FOR DANIELLE. PATIENT BREATHING IS EVEN AND UNLABORED NO SIGNS OF SOB OR RESPIRATORY DISTRESS NOTED. PATIENT IS IN NO DISTRESS. SAFETY MEASURES ARE IN PLACE. WILL CONTINUE TO MONITOR THROUGH OUT SHIFT.
--- NOTE | 2020-04-18 19:42 | NUR ---
FARMWORKER POULTRY CLOSING NOTES PATIENT RESTING IN BED, A/OX3-4 ON RA BREATHING EVEN AND UNLABORED, NO ACUTE RESPIRATORY DISTRESS NOTED. NO C/O PAIN OR DISCOMFORT AT THIS TIME. IV TO LT FA #20 PATENT AND INTACT. RT ARM [address] LINE IN PL[address]. INFUSING TPN 40ML AND LIPIDS. BED IS AT LOW POSITION AND LOCKED WITH SIDE RAILS UPX2 AND CALL LIGHT WITHIN REACH. ALL SAFETY MEASURES IN PLACE. WILL ENDORSE TO ONCOMING SHIFT.
[2020-04-18 20:00] VITALS: BP 103/58
[2020-04-18] MEDS: ATORVASTATIN 10 MG TABLET PO SCH (21:58)
[2020-04-18] MEDS: ENOXAPARIN SODIUM 30 MG/0.3 ML DISP.SYRIN SQ SCH (21:59)
[2020-04-18] MEDS: MIRTAZAPINE 15 MG TABLET PO SCH (21:59)
[2020-04-18] MEDS: SENNOSIDES 8.6 MG TABLET PO SCH (21:59)
[2020-04-19] MEDS: PIPERACILLIN /TAZOBACTAM 3.375 G in IV D5W 100 ML IV SCH ×2 (01:17→09:30)
[2020-04-19] MEDS: BLOOD SUGAR DIAGNOSTIC 1 EACH STRIP IN SCH ×4 (06:33→23:22)
[2020-04-19] MEDS: INSULIN REGULAR, HUMAN 100 UNIT/ML 3 ML VIAL SQ PRN ×4 (06:35→23:32)
--- NOTE | 2020-04-19 06:55 | NUR ---
MS/RN CLOSING NOTES PATIENT IN BED SLEEPING EASY TO AROUSE. PATIENT IS ALERT AND ORIENTED X 2. NO SIGNS OF SOB OR RESPIRATORY DISTRESS NOTED. PATIENT BREATHING IS EVEN AND UNLABORED. PATIENT IN NO SIGNS OF DISTRESS. PATIENT HAS IV ACCESS ON LEFT FA #20G AND RIGHT ARM PICC LINE. NG TUBE IN PLACE ON CONT LOW SUCTION DRAINING DARK COLOR RESIDUAL. ALL NEEDS MET DURING SHIFT. SAFETY MEASURES ARE IN PLACE, BED IS LOCKED AND PLACED IN THE LOW POSITION, SIDE RAILS UP X 2, CALL LIGHT WITHIN REACH. WILL ENDORSE CARE TO DAY SHIFT NURSE.
[2020-04-19 07:07] LABS: BASOPHILS % (AUTO) 0.2 % (0.0-2.0); EOSINOPHILS % (AUTO) 0.1 % (0.0-6.0); HEMATOCRIT 45 % (39-51); HEMOGLOBIN 14.7 g/dL (13.5-17.5); LYMPHOCYTES # (AUTO) 0.3 /CMM (0.8-4.8); LYMPHOCYTES % (AUTO) 1.3 % (20.0-44.0); MEAN CORPUSCULAR HGB CONC 33 g/dl (31.0-36.0); MEAN CORPUSCULAR VOLUME 100 fL (80-96); MONOCYTES # (AUTO) 0.4 /CMM (0.1-1.30); MONOCYTES % (AUTO) 2.1 % (2.0-12.0); NEUTROPHILS # (AUTO) 19.7 /CMM (1.8-8.9); NEUTROPHILS % (AUTO) 96.3 % (43.0-81.0); PLATELET COUNT (AUTO) 75 /CMM (150-450); RED BLOOD CELL COUNT(AUTO) 4.48 MIL/uL (4.5-6.0); WHITE BLOOD COUNT (AUTO) 20.5 K/uL (4.3-11.0)
[2020-04-19 07:19] LABS: TRIGLYCERIDES 82 mg/dL (30-150)
[2020-04-19 07:28] LABS: CALCIUM, SERUM 8.2 mg/dL (8.5-10.1); CARBON DIOXIDE 20 mmol/L (21-32); CHLORIDE 106 mmol/L (98-107); CREATININE 3.1 mg/dL (0.6-1.3); GLUCOSE 252 mg/dL (74-106); MAGNESIUM 2.6 mg/dL (1.8-2.4); POTASSIUM 3.6 mmol/L (3.5-5.1); SODIUM SERUM 140 mmol/L (136-145)
[2020-04-19 07:33] LABS: UREA NITROGEN, BLOOD 135 mg/dL (7-18)
--- NOTE | 2020-04-19 07:42 | NUR ---
MS RN OPENING NOTES PATIENT RECEIVED AWAKE IN BED IN NO ACUTE SIGNS OF DISTRESS. HOB ELEVATED. A/O X3-4. ABLE TO VERBALIZED NEEDS, DENIERS PAIN OR ANY DISCOMFORTS AT THIS TIME. ON RA, BREATHING EVEN AND UNLABORED. PT IS NPO WITH NG-TUBE ON LEFT NARE IN PLACE CONNECTED TO INTERMITTENT LOW SUCTION WITH BLACK MIXED WITH MUCUS OUTPUT NOTED. IV SL ON LFA G#20 PATENT AND INTACT. [address] LINE IN PLACE TO KE[place] WITH TPN INFUSING AT 40ML/HR, TOLERATING WELL. SAFETY MEASURES IN PLACE: BED IS AT LOW POSITION AND LOCKED WITH SIDE RAILS UP X2, BED ALARM ON AND CALL LIGHT WITHIN REACH. WILL CONTINUE TO MONITOR PT ACCORDINGLY.
[2020-04-19 08:00] VITALS: BP 106/62
[2020-04-19] MEDS: ENSURE ENLIVE CHOC 237 ML CAN PO SCH ×3 (08:00→17:00)
[2020-04-19] MEDS: DOCUSATE SODIUM 100 MG CAPSULE PO SCH (09:00)
[2020-04-19 11:15] LABS: BAND % (MANUAL) 6 % (0.0-5.0); LYMPHOCYTES % (MANUAL) 2 % (16-48); MONOCYTES % (MANUAL) 2 % (0-11.0); NEUTROPHILS % (MANUAL) 90 (42-76)
[2020-04-19] MEDS: FAT EMULSION 20% 500 ML in PREMIX 1 EA IV SCH (14:01)
--- NOTE | 2020-04-19 14:27 | NUR ---
MS RN NOTES ADMINISTERED NUTRILIPID 20% FAT EMULSION 500ML AT 20.833 ML/HR TO BE INFUSED FOR 24 HOURS VIA KEATON PICCLINE. WILL CONTINUE TO MONITOR.
[2020-04-19 16:00] VITALS: BP 107/66
[2020-04-19] MEDS ORDERED: TPN BAG #3 IV SCH ×2 (17:00)
[2020-04-19] MEDS: CEFEPIME 2 GM in IV D5W 100 ML IV SCH (17:53)
--- NOTE | 2020-04-19 19:30 | NUR ---
MS RN CLOSING NOTES PATIENT IN BED AWAKE AT THIS TIME AND LYING AT MODERATE HIGH BACKREST POSITION. A/O X3-4. ABLE TO VERBALIZED NEEDS. ON RA, BREATHING EVEN AND UNLABORED. PT IS NPO WITH NG-TUBE ON LEFT NARE IN PLACE CONNECTED TO INTERMITTENT LOW SUCTION WITH BLACK MIXED WITH MUCUS OUTPUT NOTED,OUTPUT 350ML THIS SHIFT. IV SL ON LFA G#20 PATENT AND INTACT. [address] LINE IN PLACE TO [place] WITH TPN INFUSING AT 40ML/HR AND NUTRILIPID 20% IV FAT AT 20.83ML/HR, TOLERATING WELL. ALL NEEDS AND CARE ATTENDED WELL. SAFETY MEASURES KEPT IN PLACE: BED IS AT LOW POSITION AND LOCKED WITH SIDE RAILS UP X2, BED ALARM ON AND CALL LIGHT WITHIN REACH. ENDORSED TO [employer] SUPERVISOR NURSE NOVEM FOR DANIELLE.
--- NOTE | 2020-04-19 19:45 | NUR ---
MS RN OPENING: PATIENT RECEIVED AWAKE IN BED IN NO ACUTE SIGNS OF DISTRESS. HOB ELEVATED. NO SOB. NO RESP DISTRESS NOTED. A/O X3-4. ABLE TO VERBALIZED NEEDS, PT DENIES PAIN OR ANY DISCOMFORTS AT THIS TIME. ON RA, BREATHING EVEN AND UNLABORED. PT IS NPO WITH NG-TUBE ON LEFT NARE IN PLACE CONNECTED TO INTERMITTENT LOW SUCTION WITH BLACK MIXED WITH MUCUS OUTPUT NOTED. IV SL ON LFA G#20 PATENT AND INTACT. [address]UM[address]ICC LINE IN PLACE TO [place] WITH TPN INFUSING AT 40ML/HR, TOLERATING WELL. SAFETY MEASURES IN PLACE: BED IS AT LOW POSITION AND LOCKED WITH SIDE RAILS UP X2, BED ALARM ON AND CALL LIGHT WITHIN REACH. KEPT CLEAN AND DRY. WILL CONTINUE TO MONITOR PT.
[2020-04-19 20:50] VITALS: BP 105/67
[2020-04-19] MEDS: ATORVASTATIN 10 MG TABLET PO SCH (21:53)
[2020-04-19] MEDS: MIRTAZAPINE 15 MG TABLET PO SCH (21:53)
[2020-04-19] MEDS: SENNOSIDES 8.6 MG TABLET PO SCH (21:53)
[2020-04-19] MEDS: ENOXAPARIN SODIUM 30 MG/0.3 ML DISP.SYRIN SQ SCH (22:00)
[2020-04-20] MEDS: BLOOD SUGAR DIAGNOSTIC 1 EACH STRIP IN SCH ×3 (05:16→17:43)
[2020-04-20] MEDS: INSULIN REGULAR, HUMAN 100 UNIT/ML 3 ML VIAL SQ PRN ×3 (05:18→17:53)
--- NOTE | 2020-04-20 05:57 | NUR ---
MS RN CLOSING NOTES PATIENT IN BED AWAKE AT THIS TIME AND LYING IN BED. HOB UP. A/O X3-4. ABLE TO VERBALIZED NEEDS. ON RA, BREATHING EVEN AND UNLABORED. PT IS NPO WITH NG-TUBE ON LEFT NARE IN PLACE CONNECTED TO INTERMITTENT LOW SUCTION WITH BLACK MIXED WITH MUCUS OUTPUT NOTED,OUTPUT 850ML THIS SHIFT. IV SL ON LFA G#20 PATENT AND INTACT. [address]UM[address]ICC LINE IN PLACE TO [place] WITH TPN INFUSING AT 40ML/HR AND NUTRILIPID 20% IV FAT AT 20.83ML/HR, TOLERATING WELL. ALL NEEDS AND CARE ATTENDED WELL. SAFETY MEASURES KEPT IN PLACE: BED IS AT LOW POSITION AND LOCKED WITH SIDE RAILS UP X2, BED ALARM ON AND CALL LIGHT WITHIN REACH. CONTINUE TO MONITOR
[2020-04-20 07:29] LABS: EOSINOPHILS % (AUTO) 0.1 % (0.0-6.0); HEMATOCRIT 43 % (39-51); HEMOGLOBIN 13.9 g/dL (13.5-17.5); LYMPHOCYTES # (AUTO) 0.3 /CMM (0.8-4.8); LYMPHOCYTES % (AUTO) 1.4 % (20.0-44.0); MEAN CORPUSCULAR HGB CONC 33 g/dl (31.0-36.0); MEAN CORPUSCULAR VOLUME 100 fL (80-96); MONOCYTES # (AUTO) 0.5 /CMM (0.1-1.30); MONOCYTES % (AUTO) 1.9 % (2.0-12.0); NEUTROPHILS % (AUTO) 96.6 % (43.0-81.0); PLATELET COUNT (AUTO) 96 /CMM (150-450); RED BLOOD CELL COUNT(AUTO) 4.26 MIL/uL (4.5-6.0); WHITE BLOOD COUNT (AUTO) 24.8 K/uL (4.3-11.0)
[2020-04-20 07:48] LABS: CARBON DIOXIDE 19 mmol/L (21-32); CHLORIDE 103 mmol/L (98-107); CREATININE 2.8 mg/dL (0.6-1.3); GLUCOSE 278 mg/dL (74-106); MAGNESIUM 2.5 mg/dL (1.8-2.4); PHOSPHORUS 4.2 mg/dL (2.5-4.9); POTASSIUM 3.3 mmol/L (3.5-5.1); SODIUM SERUM 136 mmol/L (136-145)
[2020-04-20 07:57] LABS: UREA NITROGEN, BLOOD 147 mg/dL (7-18)
[2020-04-20 08:00] VITALS: BP 115/71
[2020-04-20] MEDS: ENSURE ENLIVE CHOC 237 ML CAN PO SCH ×3 (08:00→16:44)
--- NOTE | 2020-04-20 08:30 | NUR ---
MS/RN OPENING NOTES RECEIVED PATIENT BED. A/O X3. IV ON L FA #20. KEATON PICC LINE. INTACT, TPN RUNNING. NGT CONNECTED TO LOW INTERMITTENT SUCTION ON LEFT NARE, OUTPUT BLACK IN COLOR. AFEBRILE. IN NO APPARENT DISTRESS. SAFETY PRECAUTIONS APPLIED. BED IN LOWEST POSITION, LOCKED. SIDE RAILS UP X 2. CALL LIGHT WITHIN REACH. WILL CONTINUE TO MONITOR.
[2020-04-20] MEDS: ASPIRIN 81 MG TAB.CHEW PO SCH (08:40)
[2020-04-20] MEDS: DOCUSATE SODIUM 100 MG CAPSULE PO SCH (08:40)
[2020-04-20 10:00] LABS: LYMPHOCYTES % (MANUAL) 3 % (16-48); MONOCYTES % (MANUAL) 1 % (0-11.0); NEUTROPHILS % (MANUAL) 96 (42-76)
[2020-04-20] MEDS: POTASSIUM CL. PREMIX PERIPHER. 50 ML IV SCH ×2 (10:45→11:49)
[2020-04-20] MEDS ORDERED: SUCCINYLCHOLINE CHLORIDE 20 MG/ML VIAL ONE (11:47)
--- NOTE | 2020-04-20 12:20 | NUR ---
RN NOTES PATIENT WAS PICKED UP FOR EGD PROCEDURE VIA GURNEY, ACCOMPANIED BY 3 OR NURSES. BEDSIDE ENDORSEMENT DONE
[2020-04-20 14:45] VITALS: BP 114/67
--- NOTE | 2020-04-20 15:00 | NUR ---
RN NOTES PATIENT RETURNED FROM EGD PROCEDURE VIA GURNEY, ACCOMPANIED BY OR NURSE. ORDERS NOTED FROM DR. FERNANDO: KEEP PATIENT NPO, RESUME PREVIOUS MEDS, PROTONIX 40MG IV BID. WILL CONTINUE TO MONITOR.
[2020-04-20 16:00] VITALS: BP 114/67
[2020-04-20] MEDS ORDERED: TPN BAG #4 IV SCH ×2 (17:00)
[2020-04-20] MEDS: CEFEPIME 2 GM in IV D5W 100 ML IV SCH (18:06)
--- NOTE | 2020-04-20 18:48 | NUR ---
MS/RN CLOSING NOTES PATIENT IN BED, ON SEMI FOWLERS POSITION. A/O X3. AFEBRILE. DENIES ANY PAIN. IN NO APPARENT DISTRESS. ON ROOM AIR, TOLERATING WELL. NGT CONNECTED TO LOW INTERMITTENT SUCTION ON L NARE. L FOREARM # 20 G. KEATON PICC LINE, TPN INFUSING. SAFETY PRECAUTIONS APPLIED. BED IN LOWEST POSITION, LOCKED. SIDE RAILS UP X2. CALL LIGHT WITHIN REACH. WILL ENDORSE CONTINUITY OF CARE TO HUMID SYSTEM OPERATOR.
--- NOTE | 2020-04-20 19:15 | NUR ---
CLARIFICATION RIGHT NARE NGT IN PLACE WITH SUCTION
--- NOTE | 2020-04-20 19:15 | NUR ---
RN OPENING NOTES RECEIVED PATIENT IN BED AWAKE ALERT AND ORIENTED X3, RESPIRATIONS EVEN AND UNLABORED WITH EQUAL RISE AND FALL OF CHEST, DENIES ANY PAIN OR DISCOMFORT, NGT TO LEFT NARE WITH SUCTION IN PLACE, NOTED COFFEE GROUND COLOR.RIGHT UPPER ARM PICC LINE INTACT AND PATENT, NO REDNESS, NO INFILTRATION PRESENT, TPN BAG #4 RUNNING ORDERED, REMAINS NPO. SAFETY PRECAUTIONS RENDERED, LOW BED AND LOCKED, ALL NEEDS ATTENDED AT THIS TIME. WILL CONTINUE TO MONITOR.
[2020-04-20 20:00] VITALS: BP 123/64
[2020-04-20] MEDS: ATORVASTATIN 10 MG TABLET PO SCH (20:56)
[2020-04-20] MEDS: PANTOPRAZOLE 40 MG VIAL IV SCH (20:56)
[2020-04-20] MEDS: ENOXAPARIN SODIUM 30 MG/0.3 ML DISP.SYRIN SQ SCH (20:57)
[2020-04-20] MEDS: MIRTAZAPINE 15 MG TABLET PO SCH (20:57)
[2020-04-20] MEDS: SENNOSIDES 8.6 MG TABLET PO SCH (20:57)
--- NOTE | 2020-04-20 20:58 | NUR ---
rn notes po meds held patient is npo diagnosis. lovenox held patient had ngt with coffee ground emesis.. held possible GIB.
[2020-04-20] MEDS: LORAZEPAM INJ 2 MG/ML VIAL IVP PRN (22:44)
--- NOTE | 2020-04-20 22:44 | NUR ---
rn notes pt requested for ativan prn. ativan prn as ordered given 0.25ml given, rest witnessed and wasted with another rn. will continue to monitor for effectiveness.
[2020-04-21] VITALS: BP 102/68
[2020-04-21] MEDS: BLOOD SUGAR DIAGNOSTIC 1 EACH STRIP IN SCH ×4 (00:52→18:02)
[2020-04-21] MEDS: INSULIN REGULAR, HUMAN 100 UNIT/ML 3 ML VIAL SQ PRN ×4 (00:54→17:59)
[2020-04-21 04:00] VITALS: BP 105/65
--- NOTE | 2020-04-21 06:49 | NUR ---
RN CLOSING NOTES PATIENT IN BED AWAKE ALERT AND ORIENTED X3, RESPIRATIONS EVEN AND UNLABORED WITH EQUAL RISE AND FALL OF CHEST, DENIES ANY PAIN OR DISCOMFORT, NGT TO RIGHT NARE WITH SUCTION IN PLACE, NOTED COFFEE GROUND COLOR OUTPUT IS 300.RIGHT UPPER ARM PICC LINE INTACT AND PATENT, NO REDNESS, NO INFILTRATION PRESENT, TPN BAG #4 RUNNING ORDERED, REMAINS NPO. SAFETY PRECAUTIONS RENDERED, LOW BED AND LOCKED, ALL NEEDS ATTENDED AT THIS TIME. WILL CONTINUE TO MONITOR AND ENDORSE TO NEXT SHIFT, PERINEAL CARE PROVIDED SKIN REMAINS INTACT, HEELS OFFLOADED. ALL NEEDS WERE ATTENDED.
[2020-04-21 08:00] VITALS: BP 109/58
[2020-04-21] MEDS: ENSURE ENLIVE CHOC 237 ML CAN PO SCH ×2 (08:00→12:00)
--- NOTE | 2020-04-21 08:24 | NUR ---
MS/RN OPENING NOTES RECEIVED PATIENT ON BED, AWAKE, ALERT AND ORIENTED X 3. NO COMPLAINED OF PAIN AT THIS TIME. NO APPARENT RESPIRATORY DISTRESS NOTED. PATIENT WITH CONTINUOUS LOW NGT SUCTION AT RIGHT NARES WITH BROWN COLOR OUTPUT. WILL CONTINUE TO MONITOR.
[2020-04-21 08:32] LABS: CALCIUM, SERUM 8.4 mg/dL (8.5-10.1); CARBON DIOXIDE 22 mmol/L (21-32); CHLORIDE 107 mmol/L (98-107); CREATININE 2.5 mg/dL (0.6-1.3); GLUCOSE 195 mg/dL (74-106); MAGNESIUM 2.8 mg/dL (1.8-2.4); PHOSPHORUS 4.3 mg/dL (2.5-4.9); POTASSIUM 3.6 mmol/L (3.5-5.1); SODIUM SERUM 142 mmol/L (136-145)
[2020-04-21 08:35] LABS: UREA NITROGEN, BLOOD 146 mg/dL (7-18)
[2020-04-21 08:40] LABS: BASOPHILS % (AUTO) 0.1 % (0.0-2.0); EOSINOPHILS % (AUTO) 0.2 % (0.0-6.0); HEMATOCRIT 44 % (39-51); HEMOGLOBIN 14.1 g/dL (13.5-17.5); LYMPHOCYTES # (AUTO) 0.3 /CMM (0.8-4.8); LYMPHOCYTES % (AUTO) 1.2 % (20.0-44.0); MEAN CORPUSCULAR HGB CONC 32 g/dl (31.0-36.0); MEAN CORPUSCULAR VOLUME 101 fL (80-96); MONOCYTES # (AUTO) 0.7 /CMM (0.1-1.30); MONOCYTES % (AUTO) 2.8 % (2.0-12.0); NEUTROPHILS # (AUTO) 23.2 /CMM (1.8-8.9); NEUTROPHILS % (AUTO) 95.7 % (43.0-81.0); PLATELET COUNT (AUTO) 96 /CMM (150-450); WHITE BLOOD COUNT (AUTO) 24.3 K/uL (4.3-11.0)
[2020-04-21] MEDS: DOCUSATE SODIUM 100 MG CAPSULE PO SCH (08:49)
[2020-04-21] MEDS: PANTOPRAZOLE 40 MG VIAL IV SCH ×2 (08:49→22:20)
[2020-04-21] MEDS ORDERED: DIATR MEGLU/DIATRIZOATE SODIUM 120 ML BOTTLE (GASTROGRAPHIN) ONE (14:27)
[2020-04-21] MEDS: FAT EMULSION 20% 500 ML in PREMIX 1 EA IV SCH (15:35)
--- NOTE | 2020-04-21 15:56 | NUR ---
MS/RN NOTES PATIENT IS OUT IN THE UNIT. PATIENT IN NO APPARENT RESPIRATORY DISTRESS NOTED. NO COMPLAINED OF PAIN NOTED. VASCULAR NURSE BY CONCRETE PIPE MAKING MACHINE OPERATOR.
[2020-04-21] MEDS ORDERED: TPN BAG #5 IV SCH ×2 (17:00)
[2020-04-21] MEDS: CEFEPIME 2 GM in IV D5W 100 ML IV SCH (18:02)
--- NOTE | 2020-04-21 19:49 | NUR ---
MS/RN CLOSING NOTES PATIENT IS ON BED ALERT AND ORIENTED X3. PATIENT IN NO APPARENT RESPIRATORY DISTRESS NOTED. NO COMPLAINED OF PAIN AT THIS TIME. SEEN AND EXAMINED BY MD WITH ORDERS MADE AND CARRIED OUT. ALL DUE MEDICATIONS WAS GIVEN. WAITING FOR INSULATION SUPERVISOR MAYRA TO CLARIFY THE RESULT FOR XRAY, NGT PLACEMENT. WILL ENDORSED TO TODDLER NANNY RN TO FOLLOW UP AND TO CONTINUE DANIELLE.
[2020-04-21 20:00] VITALS: BP 106/69
--- NOTE | 2020-04-21 20:22 | NUR ---
MS RN NOTE ADVANCED NGT 9CM ADVISED BY RADIOLOGY. NOW ON 65 CM. STAT CXR ORDERED FOR PLACEMENT VERIFICATION. WILL CONTINUE TO MONITOR.
--- NOTE | 2020-04-21 21:55 | NUR ---
MS RN NOTE DR. SCOTT VISITED THE FLOOR & REVIEWED THE CXR RESULTS RECENTLY AFTER NGT WAS ADVANCED. PER MD NO NEED TO ADVANCE NGT AT THIS TIME. WILL CONTINUE TO MONITOR THE PATIENT.
[2020-04-21] MEDS: MIRTAZAPINE 15 MG TABLET PO SCH (22:00)
[2020-04-21] MEDS: ATORVASTATIN 10 MG TABLET PO SCH (22:00)
[2020-04-21] MEDS: SENNOSIDES 8.6 MG TABLET PO SCH (22:00)
[2020-04-21] MEDS: ENOXAPARIN SODIUM 30 MG/0.3 ML DISP.SYRIN SQ SCH (22:00)
--- NOTE | 2020-04-21 22:14 | NUR ---
MS RN NOTE PO Meds held patient is NPO diagnosis. Lovenox held patient had NGT with coffee ground emesis. held possible GIB.
--- NOTE | 2020-04-21 22:15 | NUR ---
MS RN NOTE ADINA FROM RADIOLOGY CALLED TO INFORM THAT RADIOLOGIST ANDREIA WILL DISCUSS WITH BEVERLEY MANCERA BEFORE PROCEEDING WITH SMALL BOWEL FOLLOW THROUGH TO PREVENT RISK OF ASPIRATION DUE TO NGT IN PLACE.
[2020-04-22] MEDS: BLOOD SUGAR DIAGNOSTIC 1 EACH STRIP IN SCH ×4 (00:24→17:41)
[2020-04-22] MEDS: INSULIN REGULAR, HUMAN 100 UNIT/ML 3 ML VIAL SQ PRN ×4 (00:37→17:43)
[2020-04-22 06:54] LABS: ALANINE AMINOTRANSFERASE 19 U/L (12-78); ALBUMIN 1.7 g/dL (3.4-5.0); ALKALINE PHOSPHATASE 83 U/L (46-116); ASPARTATE AMINOTRANSFERASE 15 U/L (15-37); BILIRUBIN,TOTAL 0.5 mg/dL (0.2-1.0); CALCIUM, SERUM 8.3 mg/dL (8.5-10.1); CARBON DIOXIDE 22 mmol/L (21-32); CHLORIDE 103 mmol/L (98-107); GLUCOSE 271 mg/dL (74-106); MAGNESIUM 2.7 mg/dL (1.8-2.4); PHOSPHORUS 3.9 mg/dL (2.5-4.9); POTASSIUM 3.5 mmol/L (3.5-5.1); SODIUM SERUM 136 mmol/L (136-145); TOTAL PROTEIN, SERUM 5.2 g/dL (6.4-8.2)
[2020-04-22 06:56] LABS: BASOPHILS # (AUTO) 0.1 /CMM (0.0-0.2); BASOPHILS % (AUTO) 0.3 % (0.0-2.0); EOSINOPHILS % (AUTO) 0.1 % (0.0-6.0); HEMATOCRIT 41 % (39-51); HEMOGLOBIN 13.4 g/dL (13.5-17.5); LYMPHOCYTES # (AUTO) 0.2 /CMM (0.8-4.8); LYMPHOCYTES % (AUTO) 0.8 % (20.0-44.0); MEAN CORPUSCULAR HGB CONC 33 g/dl (31.0-36.0); MEAN CORPUSCULAR VOLUME 101 fL (80-96); MONOCYTES # (AUTO) 0.8 /CMM (0.1-1.30); MONOCYTES % (AUTO) 3.1 % (2.0-12.0); NEUTROPHILS # (AUTO) 25.7 /CMM (1.8-8.9); NEUTROPHILS % (AUTO) 95.7 % (43.0-81.0); PLATELET COUNT (AUTO) 115 /CMM (150-450); RED BLOOD CELL COUNT(AUTO) 4.08 MIL/uL (4.5-6.0); WHITE BLOOD COUNT (AUTO) 26.9 K/uL (4.3-11.0)
[2020-04-22 06:58] LABS: UREA NITROGEN, BLOOD 140 mg/dL (7-18)
--- NOTE | 2020-04-22 07:30 | NUR ---
RN OPENING NOTES PATIENT IN BED, A./OX3, ON ROOM AIR, SPO2 IS 99%, NO ACUTE DISTRESS OR SOB NOTED, NG TUBE IN PLACE, AUSCULTATED FOR PLACEMENT, ON LOW INT SUCTION, DRAINING BLACKISH FLUID, BED REST, NPO STATUS, PICC LINE ON RIGH UPPER ARM, RUNNING TKO AND LIPIDS, TOLERATING WELL, SAFETY MEASURES IN PLACE, BED IS LOCKED, IN LOWEST POSITION, HOB ELEVATED, WILL CONT TO MONITOR
--- NOTE | 2020-04-22 07:51 | NUR ---
MS/RN CLOSING NOTES PATIENT IS RESTING ON BED ALERT AND ORIENTED X2-3, FORGETFUL AT TIMES. PATIENT IN NO APPARENT RESPIRATORY DISTRESS NOTED. NO COMPLAINED OF PAIN AT THIS TIME. NGT ON CONTINUOS LOW SUCTION. KEATON PICCLINE, INTACT & PATENT, RUNNING WITH TPN & LIPIDS. ALL DUE MEDICATIONS WAS GIVEN. ENDORSED TO AM SHIFT RN TO FOLLOW UP AND TO CONTINUE DANIELLE.
[2020-04-22 08:00] VITALS: BP 104/64
[2020-04-22] MEDS: ASPIRIN 81 MG TAB.CHEW PO SCH (09:00)
[2020-04-22] MEDS: DOCUSATE SODIUM 100 MG CAPSULE PO SCH (09:00)
[2020-04-22] MEDS: PANTOPRAZOLE 40 MG VIAL IV SCH ×2 (09:33→21:50)
[2020-04-22] MEDS ORDERED: DIATR MEGLU/DIATRIZOATE SODIUM 120 ML BOTTLE (GASTROGRAPHIN) ONE (11:07)
--- NOTE | 2020-04-22 11:27 | NUR ---
PATIENT WENT TO RADIOLOGY TO PERFORM FOLLOW THROUGH BOWEL PROCEDURE
[2020-04-22] MEDS ORDERED: IV NS 0.9% 250 ML IV ONE (11:39)
--- NOTE | 2020-04-22 12:14 | NUR ---
Radiologist, Dr. Fields, attempted to use ng-tube for the Small Bowel Follow through. Unsuccessfull attempt, procedure aborted, Dom is aware. 0.9 flouro time, 25cc Gastroprahin, then sunction out.
[2020-04-22] MEDS ORDERED: TPN BAG #7 IV SCH ×2 (13:30)
--- NOTE | 2020-04-22 15:00 | NUR ---
CLEANED AND REPOSITIONED, TOLERATED WELL
--- NOTE | 2020-04-22 15:10 | NUR ---
COMPLAIN ON SEVERE PAIN ON STOMACH AREA 8/10 MOANING, WILL ADMINISTER PRN PAIN MED
[2020-04-22] MEDS: MORPHINE SULFATE INJ 2 MG/ML DISP.SYRIN IV PRN ×2 (15:18→23:05)
[2020-04-22 16:00] VITALS: BP 110/68
[2020-04-22] MEDS: CEFEPIME 2 GM in IV D5W 100 ML IV SCH (18:16)
--- NOTE | 2020-04-22 19:00 | NUR ---
RN CLOSING NOTES PATIENT REMAINS STABLE DURING THE SHIFT, MEDIATIONS GIVEN, COMFORT NEEDS ATTENDED, SAFETY MEASURES IMPLEMENTED, WILL ENDORSE TO PM SHIFT RN FOR DANIELLE
[2020-04-22 20:00] VITALS: BP 123/74
[2020-04-22] MEDS: ENOXAPARIN SODIUM 30 MG/0.3 ML DISP.SYRIN SQ SCH (21:51)
[2020-04-22] MEDS: MIRTAZAPINE 15 MG TABLET PO SCH (22:00)
[2020-04-22] MEDS: ATORVASTATIN 10 MG TABLET PO SCH (22:00)
[2020-04-22] MEDS: SENNOSIDES 8.6 MG TABLET PO SCH (22:00)
--- NOTE | 2020-04-23 00:20 | NUR ---
PT COMPLAINED OF GENERALIZED PAIN 8/10 IN ABD AND BACK REGION. PRN OF MORPHINE GIVEN ORDERED WILL CONTINUE TO MONITOR
[2020-04-23] MEDS: BLOOD SUGAR DIAGNOSTIC 1 EACH STRIP IN SCH ×5 (00:56→23:24)
[2020-04-23] MEDS: INSULIN REGULAR, HUMAN 100 UNIT/ML 3 ML VIAL SQ PRN ×5 (01:11→23:25)
[2020-04-23] MEDS: MORPHINE SULFATE INJ 2 MG/ML DISP.SYRIN IV PRN ×2 (05:49→12:00)
[2020-04-23 06:50] LABS: BASOPHILS % (AUTO) 0.1 % (0.0-2.0); EOSINOPHILS % (AUTO) 0.2 % (0.0-6.0); HEMATOCRIT 42 % (39-51); HEMOGLOBIN 13.6 g/dL (13.5-17.5); LYMPHOCYTES # (AUTO) 0.2 /CMM (0.8-4.8); MEAN CORPUSCULAR HGB CONC 32 g/dl (31.0-36.0); MEAN CORPUSCULAR VOLUME 101 fL (80-96); MONOCYTES # (AUTO) 1.1 /CMM (0.1-1.30); MONOCYTES % (AUTO) 4.7 % (2.0-12.0); NEUTROPHILS # (AUTO) 21.6 /CMM (1.8-8.9); PLATELET COUNT (AUTO) 122 /CMM (150-450); RED BLOOD CELL COUNT(AUTO) 4.16 MIL/uL (4.5-6.0)
--- NOTE | 2020-04-23 06:53 | NUR ---
RN CLOSING NOTES NO SIGNIFICANT CHANGES. PT SLEPT WELL THROUGH THE NIGHT. STILL CONNECTED TO LOW INT SUCTION. GASTRIC CONTENTS ARE DARK AND THICK. PT DENIES PAIN AT THIS TIME. PAIN MANAGED WITH PREFERENCE OF MORPHINE. ADMINISTERED ORDERED PRN. PT TOLERATED BED BATH. T/R TOLERATED. SAFETY MEASURES IN PLACE. HOB ELEVATED. SIDE RAILS UP X2. BED LOCKED IN LOWEST POSITION. BED ALARM ON. WILL ENDORSE TO AM NURSE FOR CONTINUATION OF CARE. Addendum: 04/23/20 at 0701 by VICK BELTRAN RN NO SOB NOTED, NO RESP DISTRESS. BREATHING IS EVEN AND UNLABORED AT THIS TIME.
[2020-04-23 07:21] LABS: ALANINE AMINOTRANSFERASE 20 U/L (12-78); ALBUMIN 1.7 g/dL (3.4-5.0); ALKALINE PHOSPHATASE 87 U/L (46-116); ASPARTATE AMINOTRANSFERASE 19 U/L (15-37); BILIRUBIN,TOTAL 0.6 mg/dL (0.2-1.0); CALCIUM, SERUM 8.6 mg/dL (8.5-10.1); CARBON DIOXIDE 21 mmol/L (21-32); CHLORIDE 104 mmol/L (98-107); CREATININE 1.9 mg/dL (0.6-1.3); GLUCOSE 200 mg/dL (74-106); MAGNESIUM 2.9 mg/dL (1.8-2.4); PHOSPHORUS 4.3 mg/dL (2.5-4.9); POTASSIUM 3.6 mmol/L (3.5-5.1); SODIUM SERUM 136 mmol/L (136-145); TOTAL PROTEIN, SERUM 5.1 g/dL (6.4-8.2)
--- NOTE | 2020-04-23 07:30 | NUR ---
RN MS NOTES PT IN BED, ASLEEP, EASY TO AROUSE, ALERT AND ORIENTED, WEAK, WITH NG TUBE IN PLACE CONNECTED TO LOW INTERMITTENT SUCTION, NOTED WITH COFFEE GROUND OUTPUT, NO COMPLAINT OF PAIN AT THIS TIME, RESPIRATIONS NORMAL, CALL LIGHT WITHIN REACH, NEEDS ATTENDED.
[2020-04-23 07:41] LABS: UREA NITROGEN, BLOOD 136 mg/dL (7-18)
[2020-04-23 08:00] VITALS: BP 120/72
[2020-04-23] MEDS: DOCUSATE SODIUM 100 MG CAPSULE PO SCH (09:00)
[2020-04-23] MEDS: PANTOPRAZOLE 40 MG VIAL IV SCH ×2 (09:18→21:34)
[2020-04-23] MEDS: CEFEPIME 2 GM in IV D5W 100 ML IV SCH ×2 (13:00→22:31)
[2020-04-23] MEDS: FAT EMULSION 20% 500 ML in PREMIX 1 EA IV SCH (14:48)
[2020-04-23 16:00] VITALS: BP 101/57
[2020-04-23] MEDS ORDERED: TPN BAG #8 IV SCH ×2 (16:00)
[2020-04-23] MEDS ORDERED: ANESTHESIA TRAY IN PYXIS 1 EA TRAY MC ONE (18:03)
--- NOTE | 2020-04-23 19:30 | NUR ---
RN MS NOTES PT IN BED, RESTING, NO COMPLAINT OF PAIN OR DISTRESS, SEEN BY DR. PATEL, PLAN FOR SURGERY TOMORROW, PT INFORMED AND AGREED WITH PLAN, PM CARE PROVIDED, PM MEDS GIVEN ORDERED, KEPT WARM AND COMFORTABLE IN BED.
[2020-04-23 20:00] VITALS: BP 102/70
[2020-04-23] MEDS: SENNOSIDES 8.6 MG TABLET PO SCH ×2 (21:31→21:34)
[2020-04-23] MEDS: ENOXAPARIN SODIUM 30 MG/0.3 ML DISP.SYRIN SQ SCH (21:31)
[2020-04-23] MEDS: ATORVASTATIN 10 MG TABLET PO SCH ×2 (21:34→21:42)
[2020-04-23] MEDS: MIRTAZAPINE 15 MG TABLET PO SCH ×2 (21:34→21:42)
[2020-04-24] VITALS (21 sets, daily range): BP systolic 94–128; BP diastolic 49–75
[2020-04-24] MEDS: BLOOD SUGAR DIAGNOSTIC 1 EACH STRIP IN SCH ×3 (05:25→17:54)
[2020-04-24 06:59] LABS: BASOPHILS % (AUTO) 0.1 % (0.0-2.0); EOSINOPHILS % (AUTO) 0.1 % (0.0-6.0); HEMATOCRIT 38 % (39-51); HEMOGLOBIN 12.6 g/dL (13.5-17.5); LYMPHOCYTES # (AUTO) 0.2 /CMM (0.8-4.8); LYMPHOCYTES % (AUTO) 1.2 % (20.0-44.0); MEAN CORPUSCULAR HGB CONC 33 g/dl (31.0-36.0); MEAN CORPUSCULAR VOLUME 101 fL (80-96); MONOCYTES # (AUTO) 0.8 /CMM (0.1-1.30); MONOCYTES % (AUTO) 4.1 % (2.0-12.0); NEUTROPHILS # (AUTO) 17.6 /CMM (1.8-8.9); NEUTROPHILS % (AUTO) 94.5 % (43.0-81.0); PLATELET COUNT (AUTO) 138 /CMM (150-450); RED BLOOD CELL COUNT(AUTO) 3.82 MIL/uL (4.5-6.0); WHITE BLOOD COUNT (AUTO) 18.6 K/uL (4.3-11.0)
--- NOTE | 2020-04-24 07:02 | NUR ---
RN CLOSING NOTES Pt asleep on bed. Now new complaints made. All nursing needs attended. Due meds given as ordered. With NGT to LIWS, black/bloody fluid noted. Kept on bed clean, dry and comfortable. For OR this AM, kept on NPO throughout the shift. Witnessed consents signed by the patient. No insulin given to patient. Endorsed.
[2020-04-24 07:37] LABS: ALANINE AMINOTRANSFERASE 22 U/L (12-78); ALBUMIN 1.7 g/dL (3.4-5.0); ALKALINE PHOSPHATASE 83 U/L (46-116); ASPARTATE AMINOTRANSFERASE 21 U/L (15-37); BILIRUBIN,TOTAL 0.4 mg/dL (0.2-1.0); CALCIUM, SERUM 8.6 mg/dL (8.5-10.1); CARBON DIOXIDE 21 mmol/L (21-32); CHLORIDE 103 mmol/L (98-107); CREATININE 1.7 mg/dL (0.6-1.3); GLUCOSE 254 mg/dL (74-106); MAGNESIUM 2.6 mg/dL (1.8-2.4); PHOSPHORUS 3.9 mg/dL (2.5-4.9); POTASSIUM 3.7 mmol/L (3.5-5.1); SODIUM SERUM 134 mmol/L (136-145); TOTAL PROTEIN, SERUM 5.1 g/dL (6.4-8.2)
[2020-04-24 07:42] LABS: UREA NITROGEN, BLOOD 125 mg/dL (7-18)
--- NOTE | 2020-04-24 08:44 | NUR ---
ROCK STAR NOTES RECEIVED REPORT. PATIENT IN BED AND LEFT FOR SURGERY AT 0845.
[2020-04-24] MEDS: PANTOPRAZOLE 40 MG VIAL IV SCH ×2 (08:45→20:51)
[2020-04-24] MEDS: ASPIRIN 81 MG TAB.CHEW PO SCH (08:46)
[2020-04-24] MEDS: DOCUSATE SODIUM 100 MG CAPSULE PO SCH (08:46)
[2020-04-24] MEDS ORDERED: KETAMINE HCL (500MG/10ML) 50 MG/ML VIAL ONE (09:15)
[2020-04-24] MEDS ORDERED: FENTANYL PF 100MCG/2ML AMPUL ONE (09:17)
[2020-04-24] MEDS ORDERED: LIDOCAINE HCL/MPF 1% 30 ML VIAL IJ ONE (09:18)
[2020-04-24] MEDS ORDERED: BUPIVACAINE MPF 0.5% W/EPI INJ 30 ML VIAL ONE (09:18)
[2020-04-24] MEDS ORDERED: NOREPINEPHRINE 4 MG/4 ML AMPUL IV ONE ×2 (10:11→10:25)
[2020-04-24] MEDS: CEFEPIME 2 GM in IV D5W 100 ML IV SCH ×2 (11:30→23:32)
[2020-04-24 12:07] LABS: BASOPHILS # (AUTO) 0.1 /CMM (0.0-0.2); BASOPHILS % (AUTO) 0.4 % (0.0-2.0); EOSINOPHILS % (AUTO) 0.1 % (0.0-6.0); HEMATOCRIT 36 % (39-51); LYMPHOCYTES # (AUTO) 0.3 /CMM (0.8-4.8); LYMPHOCYTES % (AUTO) 1.8 % (20.0-44.0); MEAN CORPUSCULAR HGB CONC 33 g/dl (31.0-36.0); MEAN CORPUSCULAR VOLUME 100 fL (80-96); MONOCYTES # (AUTO) 0.7 /CMM (0.1-1.30); MONOCYTES % (AUTO) 4.2 % (2.0-12.0); NEUTROPHILS % (AUTO) 93.5 % (43.0-81.0); PLATELET COUNT (AUTO) 134 /CMM (150-450); RED BLOOD CELL COUNT(AUTO) 3.61 MIL/uL (4.5-6.0); WHITE BLOOD COUNT (AUTO) 17.2 K/uL (4.3-11.0)
[2020-04-24 12:23] LABS: ALANINE AMINOTRANSFERASE 18 U/L (12-78); ALKALINE PHOSPHATASE 67 U/L (46-116); ASPARTATE AMINOTRANSFERASE 21 U/L (15-37); BILIRUBIN,TOTAL 0.4 mg/dL (0.2-1.0); CALCIUM, SERUM 7.9 mg/dL (8.5-10.1); CARBON DIOXIDE 21 mmol/L (21-32); CHLORIDE 107 mmol/L (98-107); CREATININE 1.5 mg/dL (0.6-1.3); GLUCOSE 247 mg/dL (74-106); POTASSIUM 3.7 mmol/L (3.5-5.1); SODIUM SERUM 136 mmol/L (136-145); TOTAL PROTEIN, SERUM 3.9 g/dL (6.4-8.2)
[2020-04-24 12:31] LABS: ALBUMIN 1.3 g/dL (3.4-5.0); UREA NITROGEN, BLOOD 113 mg/dL (7-18)
--- NOTE | 2020-04-24 13:00 | NUR ---
received pt from OR, s/p exp lap and appendectomy s/t SBO, SR, PVCs, intubated, sat well, NG or ILS, f/c some output, receiving levo at 0.1mcg, v/s stable, no pain.
--- NOTE | 2020-04-24 14:00 | NUR ---
started pt on diprivan at 5mcg, hold on TPN and Lipids per Dom, LR at 150cc/hr instead.
[2020-04-24 14:47] LABS: ABG BASE EXCESS -10.6 mmol/L; ABG OXYGEN SATURATION 93.9 % (92.0-98.5); ABG PCO2 33.9 mmHg (35.0-45.0); ABG PH 7.271 (7.350-7.450); ABG PO2 101.8 mmHg (75.0-100.0); AaDO2 216.6 mmHg; COHb 0.2 % (0.5-1.5); MetHb 0.2 % (0.0-1.5); O2Hb 93.5 % (94.0-97.0); PEEP,BG 5 cm H2O; SITE, ABG Left Radial; VT, ABG 500 mL
[2020-04-24] MEDS: IV LR 1000 ML 1,000 ML IV PRN ×2 (15:31→22:37)
[2020-04-24] MEDS: PROPOFOL 100 ML IV PRN (15:39)
[2020-04-24] MEDS: NOREPINEPHRINE 8 MG in IV NS 0.9% 242 ML IV PRN (15:40)
--- NOTE | 2020-04-24 16:14 | NUR ---
pt is resting in the bed, sedated on Diprivan at 10mcg, SR, PVCs, intubated, sat well, NG to ILS, f/c in place, receiving levo at 0.1mcg, dressing intact, no swelling or bleeding noted, v/s stable, no pain, pt cleaned, changed and repositioned.
[2020-04-24] MEDS: INSULIN REGULAR, HUMAN 100 UNIT/ML 3 ML VIAL SQ PRN (17:53)
[2020-04-24] MEDS: MIRTAZAPINE 15 MG TABLET PO SCH (21:31)
[2020-04-24] MEDS: SENNOSIDES 8.6 MG TABLET PO SCH (21:32)
[2020-04-24] MEDS: ENOXAPARIN SODIUM 30 MG/0.3 ML DISP.SYRIN SQ SCH (21:33)
[2020-04-24] MEDS: ATORVASTATIN 10 MG TABLET PO SCH (22:00)
[2020-04-25] VITALS (54 sets, daily range): BP systolic 93–144; BP diastolic 43–87
[2020-04-25] MEDS: BLOOD SUGAR DIAGNOSTIC 1 EACH STRIP IN SCH ×4 (00:01→17:35)
[2020-04-25] MEDS: INSULIN REGULAR, HUMAN 100 UNIT/ML 3 ML VIAL SQ PRN ×2 (00:08→06:29)
[2020-04-25] MEDS: PROPOFOL 100 ML IV PRN (03:00)
[2020-04-25 05:05] LABS: BASOPHILS % (AUTO) 0.1 % (0.0-2.0); EOSINOPHILS % (AUTO) 0.1 % (0.0-6.0); HEMATOCRIT 38 % (39-51); HEMOGLOBIN 12.4 g/dL (13.5-17.5); LYMPHOCYTES # (AUTO) 0.3 /CMM (0.8-4.8); LYMPHOCYTES % (AUTO) 1.7 % (20.0-44.0); MEAN CORPUSCULAR HGB CONC 33 g/dl (31.0-36.0); MEAN CORPUSCULAR VOLUME 100 fL (80-96); MONOCYTES # (AUTO) 0.6 /CMM (0.1-1.30); MONOCYTES % (AUTO) 3.5 % (2.0-12.0); NEUTROPHILS # (AUTO) 15.4 /CMM (1.8-8.9); NEUTROPHILS % (AUTO) 94.6 % (43.0-81.0); PLATELET COUNT (AUTO) 151 /CMM (150-450); WHITE BLOOD COUNT (AUTO) 16.3 K/uL (4.3-11.0)
[2020-04-25 05:30] LABS: CARBON DIOXIDE 19 mmol/L (21-32); CHLORIDE 108 mmol/L (98-107); CREATININE 1.5 mg/dL (0.6-1.3); GLUCOSE 165 mg/dL (74-106); MAGNESIUM 2.4 mg/dL (1.8-2.4); PHOSPHORUS 4.2 mg/dL (2.5-4.9); SODIUM SERUM 138 mmol/L (136-145)
[2020-04-25 05:31] LABS: UREA NITROGEN, BLOOD 108 mg/dL (7-18)
[2020-04-25] MEDS: IV LR 1000 ML 1,000 ML IV PRN ×2 (06:26→13:24)
[2020-04-25 06:34] LABS: ABG BASE EXCESS -7.5 mmol/L; ABG OXYGEN SATURATION 95.3 % (92.0-98.5); ABG PCO2 26.5 mmHg (35.0-45.0); ABG PH 7.395 (7.350-7.450); ABG PO2 130.3 mmHg (75.0-100.0); AaDO2 196.4 mmHg; COHb 0.1 % (0.5-1.5); MetHb 0.2 % (0.0-1.5); PEEP,BG 5 cm H2O; SITE, ABG Right Brachial; VENT MODE, BG AC 12 550 50% +5; VT, ABG 550 mL
[2020-04-25] MEDS ORDERED: DC PROPOFOL WHEN EXTUBATED XX PRN (08:00)
--- NOTE | 2020-04-25 08:27 | NUR ---
rn notes PER JACKERMAN Dr BUCKLEY GET TO ORDER STOP DIPRIVAN DRIP FOR VENNING, ABG IN 1 HR , PEEP 8. ORDER TAKEN ND CARRIED OUT . RT WITH THE PATIENT.
[2020-04-25] MEDS: PANTOPRAZOLE 40 MG VIAL IV SCH ×2 (09:15→21:09)
[2020-04-25] MEDS: DOCUSATE SODIUM 100 MG CAPSULE PO SCH (09:16)
[2020-04-25 09:46] LABS: ABG BASE EXCESS -5.5 mmol/L; ABG OXYGEN SATURATION 94.6 % (92.0-98.5); ABG PCO2 31.4 mmHg (35.0-45.0); ABG PH 7.387 (7.350-7.450); ABG PO2 100.6 mmHg (75.0-100.0); AaDO2 148.5 mmHg; COHb 0.3 % (0.5-1.5); MetHb 0.3 % (0.0-1.5); SITE, ABG Left Radial; VENT MODE, BG SIMV 4 PS 15 +5
--- NOTE | 2020-04-25 10:15 | NUR ---
RN NOTES PATIENT ABG STABLE, AND PER RN NEONATAL ICU Dr LOZANO PATIENT WILL EXTUBATED AT THIS TIME. PATIENT WILL ON O2-NC 3L AT THIS TIME TOLERATING WELL, EDUCATED TO COUGH AND DEEP BREATH, WILL MONITORING.
[2020-04-25] MEDS: CEFEPIME 2 GM in IV D5W 100 ML IV SCH ×2 (11:38→23:39)
[2020-04-25] MEDS: MORPHINE SULFATE INJ 2 MG/ML DISP.SYRIN IV PRN ×2 (13:38→22:51)
--- NOTE | 2020-04-25 13:38 | NUR ---
rn note ADMINISTERED MORPHINE SULFATE 2 MG/ML IV PUSH PER PATIENT REQUEST PAIN 7/8 PER PAIN SCALE, BP 122/65, P-82, R-22. ASSIST TURN AND REPOSTION Q 2 HR,
[2020-04-25] MEDS: FAT EMULSION 20% 500 ML in PREMIX 1 EA IV SCH (14:00)
[2020-04-25] MEDS: NOREPINEPHRINE 8 MG in IV NS 0.9% 242 ML IV PRN (18:11)
--- NOTE | 2020-04-25 18:30 | NUR ---
rn notes Patient transferred to report given JOSE ANTONIO Sr. patient stable, v/s wnl, patinent o2-3l nc, refused pain at this time, NGT intact with intermittent suction, f/c draining yellow output, iv access on right picc line intact,, infusing norsynephrine 0.1 mcg, and 1/2 ns at 100 ml/hr intact. rn will follow up plan of care.
--- NOTE | 2020-04-25 18:35 | NUR ---
RN NOTES RECEIVED PATIENT FROM ICU, NO SIGNS OF DISTRESS, ON OXYGEN 5LPM VIA NC, A/O X3. NO COMPLAIN OF PAIN OR DISCOMFORT AT THIS TIME. ON LEVO 0.1 MCG/KG/MIN. SAFETY MEASURES IN PLACE, WILL ENDORSE TO COPYRIGHT MANAGER NURSE FOR DANIELLE.
--- NOTE | 2020-04-25 19:10 | NUR ---
RN OPENING NOTE RECEIVED PATIENT IN BED RESTING ALERT ORIENTED X3 VERBALLY RESPONSIVE ON 5L OXYGEN VIA NASAL CANNULA,ON NGT FOR SUCTIONING NPO IV SITE IS ON RIGHT UPPER ARM PICC LINE INTACT PATENT, ON LEVO 0.1 MCG/KG/MIN. ON ALAS CATHETER,URINE DRAINING YELLOW AND CLEAR BY GRAVITY,CONTINUE TO MONITOR,
[2020-04-25] MEDS: MIRTAZAPINE 15 MG TABLET PO SCH (21:31)
[2020-04-25] MEDS: ATORVASTATIN 10 MG TABLET PO SCH (21:31)
[2020-04-25] MEDS: SENNOSIDES 8.6 MG TABLET PO SCH (21:32)
[2020-04-25] MEDS: ENOXAPARIN SODIUM 30 MG/0.3 ML DISP.SYRIN SQ SCH (22:26)
[2020-04-26] VITALS (13 sets, daily range): BP systolic 110–130; BP diastolic 44–89
[2020-04-26] MEDS: INSULIN REGULAR, HUMAN 100 UNIT/ML 3 ML VIAL SQ PRN ×3 (00:12→18:06)
[2020-04-26] MEDS: IV LR 1000 ML 1,000 ML IV PRN ×2 (01:39→13:07)
--- NOTE | 2020-04-26 01:55 | NUR ---
TELERN VERBALIZES POST OP PAIN, PREFERRED MORPHINE, 2MG IVP ADMINISTERED. CLOSELY WATCHED.
[2020-04-26] MEDS: BLOOD SUGAR DIAGNOSTIC 1 EACH STRIP IN SCH ×4 (05:36→17:40)
[2020-04-26] MEDS: MORPHINE SULFATE INJ 2 MG/ML DISP.SYRIN IV PRN (05:52)
[2020-04-26 06:54] LABS: CALCIUM, SERUM 8.8 mg/dL (8.5-10.1); CARBON DIOXIDE 19 mmol/L (21-32); CHLORIDE 108 mmol/L (98-107); CREATININE 1.7 mg/dL (0.6-1.3); GLUCOSE 190 mg/dL (74-106); MAGNESIUM 2.5 mg/dL (1.8-2.4); PHOSPHORUS 4.7 mg/dL (2.5-4.9); SODIUM SERUM 140 mmol/L (136-145)
[2020-04-26 06:55] LABS: UREA NITROGEN, BLOOD 109 mg/dL (7-18)
[2020-04-26 07:05] LABS: BASOPHILS % (AUTO) 0.1 % (0.0-2.0); EOSINOPHILS % (AUTO) 0.1 % (0.0-6.0); HEMATOCRIT 36 % (39-51); HEMOGLOBIN 11.6 g/dL (13.5-17.5); LYMPHOCYTES # (AUTO) 0.4 /CMM (0.8-4.8); MEAN CORPUSCULAR HGB CONC 32 g/dl (31.0-36.0); MEAN CORPUSCULAR VOLUME 100 fL (80-96); MONOCYTES # (AUTO) 0.7 /CMM (0.1-1.30); MONOCYTES % (AUTO) 5.8 % (2.0-12.0); NEUTROPHILS # (AUTO) 10.9 /CMM (1.8-8.9); PLATELET COUNT (AUTO) 187 /CMM (150-450); RED BLOOD CELL COUNT(AUTO) 3.58 MIL/uL (4.5-6.0)
--- NOTE | 2020-04-26 07:37 | NUR ---
RN CLOSING NOTE PATIENT REMAINS ON NPO ALERT ORIENTED X3 VERBALLY RESPONSIVE ALL IV MEDS GIVEN MD ORDERED KEPT CLEAN AND DRY ALL THE TIME ALL NEEDS MET ENDORSE NEXT COMING SHIFT FOR CONTINUATION OF CARE
--- NOTE | 2020-04-26 08:00 | NUR ---
RN NOTES RECEIVED PATIENT IN BED RESTING ALERT ORIENTED X3 VERBALLY RESPONSIVE ON 2L OXYGEN VIA NASAL CANNULA, NO PAIN OR DISCOMFORT VISIBLE OR REPORTED. NO SOB .ON NGT FOR SUCTIONING NPO IV SITE IS ON RIGHT UPPER ARM PICC LINE INTACT PATENT NO REDNESS SWELLING OR PAIN AT SITE, ON ALAS CATHETER,URINE DRAINING YELLOW AND CLEAR BY GRAVITY,CONTINUE TO MONITOR,
--- NOTE | 2020-04-26 08:00 | NUR ---
RN OPENING NOTE PATIENT IS RECEIVED IN BED. PATIENT IS ALERT AND ORIENTED X3. DENIES PAIN. PATIENT IS ON NG TUBE WITH NO SUCTIONING OR FEEDING. ABDOMEN SOFT AND NON-DISTENDED. RESPIRATION REGULAR AND UNLABORED. ALAS CATH PRESENT. KEATON PICC LINE PATENT AND SALINE LOCKED. BED LOW AND LOCKED. SIDE RAILS UP X3. CALL LIGHT WITHIN REACH. WILL CONTINUE TO MONITOR.
--- NOTE | 2020-04-26 08:53 | NUR ---
RN NOTE PER DR PATEL DISCONTINUE NG TUBE AND START THE PATIENT ON CLEAR LIQUID DIET STARTING FROM BREAKFAST 04/26/20. THE ORDERS NOTED AND CARRIED OUT.
--- NOTE | 2020-04-26 09:00 | NUR ---
RN NOTE PER BUDGET COUNSELOR CALDERON LEVOPHED IS STOPPED DUE TO PATIENT MAINTAINING BP WNL. WILL CONTINUE TO MONITOR
--- NOTE | 2020-04-26 09:00 | NUR ---
RN NOTE PER TRACEY MANCERA THE PATIENT IS DOWNGRADED FROM ICU TO TELE STATUS.
[2020-04-26] MEDS: DOCUSATE SODIUM 100 MG CAPSULE PO SCH (09:54)
[2020-04-26] MEDS: ASPIRIN 81 MG TAB.CHEW PO SCH (09:54)
[2020-04-26] MEDS: PANTOPRAZOLE 40 MG VIAL IV SCH ×2 (09:54→22:30)
[2020-04-26] MEDS: CEFEPIME 2 GM in IV D5W 100 ML IV SCH (13:17)
[2020-04-26] MEDS: HYDROCODONE/APAP 5/325MG TABLET PO PRN (13:40)
--- NOTE | 2020-04-26 18:29 | NUR ---
RN CLOSING NOTE THE PATIENT IS ALERT AND ORIENTED X3. DENIES PAIN. RECEIVING OXYGEN AT 2L/MIN VIA NASAL CANNULA AND SATURATION IS AT 93% DENIES SOB. RESPIRATION REGULAR AND UNLABORED. TELE BOX READING IS SR 79 PAC AND BBB. THE PATIENT IS ON CLEAR LIQUID AND TOLERATES IT WELL. KEATON PICC LINE PATENT AND SALINE LOCKED. BED LOW AND LOCKED. SIDE RAILS UP X3. CALL LIGHT WITHIN REACH. WILL ENDORSE TO VESSEL TRAFFIC OFFICER.
--- NOTE | 2020-04-26 19:30 | NUR ---
TELERN ASLEEP EASILY AWAKENED WHEN CALLED. A/O X3 TO 4. VERY PLEASANT. ABDOMINAL DRESSING DRY AND INTACT. ABLE TO TOLERATE CLEAR LIQUIDS NO N/V. HOB 45 DEGREES. NO SOB ON 2L VIA NC. RIGHT UPPER ARM PICC LINE PATENT. REPOSITIONED FOR COMFORT. ENCOURAGED TO INCREASE ACTIVITY, STATED DID NOT DO MUCH ON PHYSICAL THERAPY TODAY.ALL NEEDS ATTENDED. KATHIA FOR NOW SR WITH BBB ON THE MONITOR.
--- NOTE | 2020-04-26 22:00 | NUR ---
TELERN HAS URGE TO MOVE HIS BOWELS, HAD MODERATE AMOUNT OF BROWN SOFT TO MUCOID FORM STOOLS. FELT BETTER ON HIS ABDOMEN.DUE MEDS ADMINISTERED.
[2020-04-26] MEDS: MIRTAZAPINE 15 MG TABLET PO SCH (22:30)
[2020-04-26] MEDS: SENNOSIDES 8.6 MG TABLET PO SCH (22:30)
[2020-04-26] MEDS: ATORVASTATIN 10 MG TABLET PO SCH (22:30)
[2020-04-26] MEDS: ENOXAPARIN SODIUM 30 MG/0.3 ML DISP.SYRIN SQ SCH (22:32)
[2020-04-27] MEDS: CEFEPIME 2 GM in IV D5W 100 ML IV SCH ×3 (00:16→23:43)
[2020-04-27] MEDS: BLOOD SUGAR DIAGNOSTIC 1 EACH STRIP IN SCH ×3 (00:16→23:16)
[2020-04-27] MEDS: INSULIN REGULAR, HUMAN 100 UNIT/ML 3 ML VIAL SQ PRN ×4 (00:48→17:35)
[2020-04-27 01:32] VITALS: BP 122/48
[2020-04-27] MEDS: MORPHINE SULFATE INJ 2 MG/ML DISP.SYRIN IV PRN (01:52)
--- NOTE | 2020-04-27 02:30 | NUR ---
TELERN ASLEEP, APPEARS COMFORTABLE.
[2020-04-27 05:16] VITALS: BP 96/66
[2020-04-27 08:00] VITALS: BP 109/56
--- NOTE | 2020-04-27 08:00 | NUR ---
RN Opening note Received patient in bed, AO x 2-3 able to responds all stimuli, Pt does no appears pain or distress. Skin is warm to touch keep clean/dry intact IV site, respiratory even and unlabored with oxygen at 2LPM O2sat 99-100%. Kept locked bed with elevated HOB for aspiration precaution and ensure airway and lowest bed foe safety. Call light within reach, will continue to monitor.
[2020-04-27 08:50] LABS: CALCIUM, SERUM 8.3 mg/dL (8.5-10.1); CARBON DIOXIDE 17 mmol/L (21-32); CHLORIDE 107 mmol/L (98-107); CREATININE 1.7 mg/dL (0.6-1.3); GLUCOSE 204 mg/dL (74-106); MAGNESIUM 2.7 mg/dL (1.8-2.4); PHOSPHORUS 3.5 mg/dL (2.5-4.9); POTASSIUM 3.6 mmol/L (3.5-5.1); SODIUM SERUM 136 mmol/L (136-145)
[2020-04-27 09:06] LABS: UREA NITROGEN, BLOOD 106 mg/dL (7-18)
[2020-04-27] MEDS: PROSOURCE / PROSTAT (PYXIS) 30 ML UDC PO SCH ×2 (09:33→16:10)
[2020-04-27] MEDS: DOCUSATE SODIUM 100 MG CAPSULE PO SCH (09:35)
[2020-04-27] MEDS: PANTOPRAZOLE 40 MG VIAL IV SCH ×2 (09:35→23:10)
[2020-04-27 12:00] VITALS: BP 103/40
[2020-04-27] MEDS: HYDROCODONE/APAP 5/325MG TABLET PO PRN (12:05)
[2020-04-27] MEDS: METOPROLOL TARTRATE 25 MG TABLET PO SCH ×2 (13:00→23:17)
--- NOTE | 2020-04-27 14:00 | NUR ---
Spoke with Dr. Grimm and given patient update include no gas passed through at this time. Received new order soft diet. Noted and carry out.
--- NOTE | 2020-04-27 18:13 | NUR ---
RN Closing note Patient in bed resting, does no appears pain or discomfort. Respiratory even and unlabored oxygen at 2LPM, provided oral care and suction. Skin is warm to touch keep clean/dry intact IV site. Kept locked bed with elevated HOB for ensure airway and aspiration precaution and lowest bed for safety. Call light within reach will endorse date night caregiver.
[2020-04-27] MEDS ORDERED: DEXTROSE 50%-WATER 50 ML DISP.SYRIN IV PRN (19:00)
[2020-04-27] MEDS ORDERED: *INSULIN REGULAR(HUMULIN R)HUM 100 UNIT/ML VIAL SQ PRN (19:00)
[2020-04-27 20:00] VITALS: BP 120/48
--- NOTE | 2020-04-27 23:00 | NUR ---
TELERN BS WAS 138. ALL NEEDS ATTENDED. HS CARE DONE. KEPT COMFORTABLE. REPOSITIONED. ENCOURAGED TO INCREASE ACTIVITY STATED DID NOT DO MUCH WITH PT TODAY.
[2020-04-27] MEDS: ATORVASTATIN 10 MG TABLET PO SCH (23:10)
[2020-04-27] MEDS: SENNOSIDES 8.6 MG TABLET PO SCH (23:10)
[2020-04-27] MEDS: MIRTAZAPINE 15 MG TABLET PO SCH (23:10)
[2020-04-27] MEDS: ENOXAPARIN SODIUM 30 MG/0.3 ML DISP.SYRIN SQ SCH (23:15)
[2020-04-28 01:00] VITALS: BP 127/53
[2020-04-28 01:55] VITALS: BP 127/53
[2020-04-28 04:30] VITALS: BP 117/52
--- NOTE | 2020-04-28 06:02 | NUR ---
CLARENCE SLEEPY EASILY AWAKED WHEN CALLED. STILL EATING LATE DINNER. EASILY FALLS ASLEEP. VITAL SIGNS STABLE. CONVERSANT, STILL TRYING TO EAT MORE. TO CONTINUE. Addendum: 04/28/20 at 0606 by JACQUELINE RUIZ RN DATED 04/27 INITIAL ASSESMENT
--- NOTE | 2020-04-28 06:56 | NUR ---
telern remains sr on the monitor. am care done bs 127.
[2020-04-28 07:27] LABS: BASOPHILS % (AUTO) 0.1 % (0.0-2.0); EOSINOPHILS % (AUTO) 0.3 % (0.0-6.0); HEMATOCRIT 32 % (39-51); HEMOGLOBIN 10.6 g/dL (13.5-17.5); LYMPHOCYTES # (AUTO) 0.4 /CMM (0.8-4.8); LYMPHOCYTES % (AUTO) 4.3 % (20.0-44.0); MEAN CORPUSCULAR HGB CONC 33 g/dl (31.0-36.0); MEAN CORPUSCULAR VOLUME 100 fL (80-96); MONOCYTES # (AUTO) 0.5 /CMM (0.1-1.30); MONOCYTES % (AUTO) 4.9 % (2.0-12.0); NEUTROPHILS % (AUTO) 90.4 % (43.0-81.0); PLATELET COUNT (AUTO) 163 /CMM (150-450); RED BLOOD CELL COUNT(AUTO) 3.18 MIL/uL (4.5-6.0)
[2020-04-28 07:48] LABS: CALCIUM, SERUM 8.3 mg/dL (8.5-10.1); CARBON DIOXIDE 20 mmol/L (21-32); CHLORIDE 109 mmol/L (98-107); CREATININE 1.7 mg/dL (0.6-1.3); GLUCOSE 144 mg/dL (74-106); MAGNESIUM 2.6 mg/dL (1.8-2.4); POTASSIUM 3.7 mmol/L (3.5-5.1); SODIUM SERUM 140 mmol/L (136-145)
[2020-04-28 07:50] LABS: UREA NITROGEN, BLOOD 103 mg/dL (7-18)
[2020-04-28] MEDS: BLOOD SUGAR DIAGNOSTIC 1 EACH STRIP IN SCH ×4 (07:53→22:02)
[2020-04-28 08:00] VITALS: BP 103/61
[2020-04-28] MEDS: ASPIRIN 81 MG TAB.CHEW PO SCH (08:47)
[2020-04-28] MEDS: DOCUSATE SODIUM 100 MG CAPSULE PO SCH (08:47)
[2020-04-28] MEDS: ENSURE CLEAR 237 ML LIQUID (MIX BERRY) PO SCH ×2 (08:47→16:41)
[2020-04-28] MEDS: PROSOURCE / PROSTAT (PYXIS) 30 ML UDC PO SCH ×2 (08:47→16:41)
[2020-04-28] MEDS: PANTOPRAZOLE 40 MG VIAL IV SCH ×2 (08:47→22:05)
[2020-04-28] MEDS: METOPROLOL TARTRATE 25 MG TABLET PO SCH ×2 (08:47→21:00)
[2020-04-28] MEDS: CEFEPIME 2 GM in IV D5W 100 ML IV SCH ×2 (11:40→22:30)
[2020-04-28] MEDS: INSULIN REGULAR, HUMAN 100 UNIT/ML 3 ML VIAL SQ PRN ×2 (11:43→16:55)
[2020-04-28 16:00] VITALS: BP 115/51
[2020-04-28] MEDS: MORPHINE SULFATE INJ 2 MG/ML DISP.SYRIN IV PRN (16:40)
--- NOTE | 2020-04-28 17:51 | NUR ---
Tele/RN - Shift report Patient is POD#4 open laparotomy with gastric resection of the strangulated small bowel, with jejunojejunostomy, end-to-side duodenal jejunostomy, & appendectomy, dressing is C/D/I. 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 Abdomen soft, nondistended, bowel sounds active, passing gas, able to tolerate soft diet, no c/o n/v. Hilario catheter in place for strict intake and output monitoring, draining yellow urine. Patient was encouraged to use incentive spirometer every 2 hours while awake. Anticipate discharge back to SNF if able to tolerate diet well. Will continue with current medical management.
[2020-04-28 20:00] VITALS: BP 111/52
[2020-04-28] MEDS: SENNOSIDES 8.6 MG TABLET PO SCH (22:02)
[2020-04-28] MEDS: ATORVASTATIN 10 MG TABLET PO SCH (22:03)
[2020-04-28] MEDS: MIRTAZAPINE 15 MG TABLET PO SCH (22:03)
[2020-04-28] MEDS: ENOXAPARIN SODIUM 30 MG/0.3 ML DISP.SYRIN SQ SCH (22:06)
--- NOTE | 2020-04-28 22:10 | NUR ---
TELE/RN NOTE Accidentally dropped senna 8.6 mg on the floor, discarded and took another one from [facility].
[2020-04-29 00:40] VITALS: BP 112/53
[2020-04-29] MEDS: BLOOD SUGAR DIAGNOSTIC 1 EACH STRIP IN SCH ×4 (06:45→21:02)
[2020-04-29 07:31] LABS: CARBON DIOXIDE 22 mmol/L (21-32); CHLORIDE 110 mmol/L (98-107); CREATININE 1.6 mg/dL (0.6-1.3); GLUCOSE 166 mg/dL (74-106); MAGNESIUM 2.3 mg/dL (1.8-2.4); POTASSIUM 3.8 mmol/L (3.5-5.1); SODIUM SERUM 141 mmol/L (136-145)
[2020-04-29 07:37] LABS: UREA NITROGEN, BLOOD 93 mg/dL (7-18)
--- NOTE | 2020-04-29 07:37 | NUR ---
RN OPEN NOTES PATIENT IS IN BED SLEEPING WITH NO SIGNS OF DISTRESS ON 2L OF NASAL CANNULA. R UA PICC LINE AND R WRIST #18G SL. ALAS CATH INTACT. TELE MONITOR. NO COMPLAIN OF PAIN AT THIS TIME. SAFETY MEASURES ARE APPLIED, BED IS IN LOW POSITION SIDE RAILS UP X 2. CALL LIGHT WITHIN REACH. WILL CONTINUE TO MONITOR.
[2020-04-29 08:00] VITALS: BP 107/51
[2020-04-29] MEDS: ENSURE CLEAR 237 ML LIQUID (MIX BERRY) PO SCH ×2 (08:00→17:10)
--- NOTE | 2020-04-29 08:03 | NUR ---
WEIGHMASTER NOTES ENDORSED TO AM NURSE. PT IN BED, RESTING COMFORTABLE. NO ACUTE EVENTS OVERNIGHT.
[2020-04-29] MEDS: DOCUSATE SODIUM 100 MG CAPSULE PO SCH (08:59)
[2020-04-29] MEDS: PANTOPRAZOLE 40 MG VIAL IV SCH ×2 (08:59→20:59)
[2020-04-29] MEDS: METOPROLOL TARTRATE 25 MG TABLET PO SCH (08:59)
[2020-04-29] MEDS: PROSOURCE / PROSTAT (PYXIS) 30 ML UDC PO SCH ×2 (09:01→17:10)
[2020-04-29] MEDS: METOPROLOL SUCCINATE 25 MG TAB.SR.24H PO SCH (11:00)
[2020-04-29] MEDS: HYDROCODONE/APAP 5/325MG TABLET PO PRN (11:14)
[2020-04-29] MEDS: CEFEPIME 2 GM in IV D5W 100 ML IV SCH ×2 (11:15→23:24)
[2020-04-29 12:00] VITALS: BP 103/62
[2020-04-29] MEDS: INSULIN REGULAR, HUMAN 100 UNIT/ML 3 ML VIAL SQ PRN ×2 (12:37→17:13)
[2020-04-29 16:00] VITALS: BP 126/71
--- NOTE | 2020-04-29 19:46 | NUR ---
RN CLOSED NOTES PATIENT IS IN BED SLEEPING WITH NO SIGNS OF DISTRESS ON 2L OF NASAL CANNULA. R UA PICC LINE AND R WRIST #18G SL. ALAS CATH INTACT. TELE MONITOR. NO COMPLAIN OF PAIN AT THIS TIME.PATIENT KEPT CLEAN AND DRY. ALL NEEDS, CARE, TREATMENT, AND MEDICATIONS WERE ADMINISTERED ANTICIPATED PER ORDER. SAFETY MEASURES ARE APPLIED, BED IS IN LOW POSITION SIDE RAILS UP X 2. CALL LIGHT WITHIN REACH WILL ENDORSE TO THE GLAZING DEPARTMENT SUPERVISOR NURSE.
--- NOTE | 2020-04-29 19:55 | NUR ---
MEDICAL ANTHROPOLOGIST NOTE: PATIENT RESTING IN BED, NO ACUTE DISTRESS NOTED. BREATHING EVEN AND UNLABORED, NO SOB NOTED. PICC LINE TO KEATON IN PLACE, AND IV TO RIGHT WRIST IN PLACE. ALAS CATHETER IN PLACE, EMPTY AT THIS TIME. NO S/S OF HYPER/HYPOGLYCEMIA NOTED. BED LOCKED AND IN LOWEST POSITION, CALL LIGHT IN REACH. WILL CONTINUE TO MONITOR.
[2020-04-29 20:00] VITALS: BP 111/63
[2020-04-29] MEDS: SENNOSIDES 8.6 MG TABLET PO SCH (21:02)
[2020-04-29] MEDS: MIRTAZAPINE 15 MG TABLET PO SCH (21:02)
[2020-04-29] MEDS: ATORVASTATIN 10 MG TABLET PO SCH (21:02)
[2020-04-30] VITALS: BP 108/56
[2020-04-30 04:00] VITALS: BP 120/52
--- NOTE | 2020-04-30 06:55 | NUR ---
HATCH TENDER NOTE: PATIENT RESTING IN BED, NO ACUTE DISTRESS NOTED. BREATHING EVEN AND UNLABORED, NO SOB NOTED. PICC LINE TO KEATON IN PLACE, AND IV TO RIGHT WRIST IN PLACE. ALAS CATHETER IN PLACE. PATIENT BLOOD SUGAR LEVEL 134 MG/DL, TO RECEIVE 2 UNITS PER SLIDING SCALE. NO S/S OF HYPER/HYPOGLYCEMIA NOTED. BED LOCKED AND IN LOWEST POSITION, CALL LIGHT IN REACH. WILL ENDORSE TO DAY NURSE TO CONTINUE WITH PLAN OF CARE.
[2020-04-30] MEDS: BLOOD SUGAR DIAGNOSTIC 1 EACH STRIP IN SCH ×4 (07:24→21:10)
--- NOTE | 2020-04-30 07:30 | NUR ---
CHIEF GUARD OPENING NOTES: PATIENT IS IN BED, RESTING, ABLE TO BE AWAKENED. A/O X2-3, ABLE TO MAKE NEEDS KNOWN. BREATHING EVEN AND UNLABORED, ON O2 AT 2L VIA NC, NO SOB NOR RESPIRATORY DISTRESS. PICC LINE TO KEATON IN PLACE, AND IV TO RIGHT WRIST IN PLACE, INTACT AND PATENT. ALAS CATHETER INTACT, DRAINING YELLOW-COLORED URINE. SAFETY PRECS IN PLACE: BED LOCKED AND IN LOWEST POSITION, CALL LIGHT IN REACH, SR UP X2. WILL CONTINUE TO MONITOR.
[2020-04-30 07:35] LABS: CARBON DIOXIDE 20 mmol/L (21-32); CHLORIDE 108 mmol/L (98-107); CREATININE 1.6 mg/dL (0.6-1.3); GLUCOSE 169 mg/dL (74-106); MAGNESIUM 2.2 mg/dL (1.8-2.4); PHOSPHORUS 3.7 mg/dL (2.5-4.9); POTASSIUM 3.3 mmol/L (3.5-5.1); SODIUM SERUM 138 mmol/L (136-145)
[2020-04-30 07:42] LABS: UREA NITROGEN, BLOOD 89 mg/dL (7-18)
[2020-04-30] MEDS: ENSURE CLEAR 237 ML LIQUID (MIX BERRY) PO SCH ×2 (07:58→16:06)
[2020-04-30 08:00] VITALS: BP 111/52
[2020-04-30] MEDS: ASPIRIN 81 MG TAB.CHEW PO SCH (08:07)
[2020-04-30] MEDS: INSULIN REGULAR, HUMAN 100 UNIT/ML 3 ML VIAL SQ PRN ×3 (08:07→21:12)
[2020-04-30] MEDS: DOCUSATE SODIUM 100 MG CAPSULE PO SCH (08:07)
[2020-04-30] MEDS: PANTOPRAZOLE 40 MG VIAL IV SCH ×2 (08:07→21:07)
[2020-04-30] MEDS: PROSOURCE / PROSTAT (PYXIS) 30 ML UDC PO SCH ×2 (08:15→16:06)
[2020-04-30] MEDS: METOPROLOL SUCCINATE 25 MG TAB.SR.24H PO SCH (11:00)
[2020-04-30] MEDS: CEFEPIME 2 GM in IV D5W 100 ML IV SCH (11:54)
[2020-04-30 12:00] VITALS: BP 120/57
[2020-04-30] MEDS ORDERED: POTASSIUM CHLORIDE 20 MEQ TAB.PRT.SR PO ONE (14:30)
[2020-04-30 16:00] VITALS: BP 108/51
--- NOTE | 2020-04-30 18:55 | NUR ---
STEAK TENDERIZER MACHINE CLOSING NOTES: PATIENT IS IN BED, AWAKE AND VERBALLY RESPONSIVE, CURRENTLY EATING DINNER. A/O X2-3, ABLE TO MAKE NEEDS KNOWN. BREATHING EVEN AND UNLABORED, CONTINUES ON O2 AT 2L VIA NC, NO SOB NOR RESPIRATORY DISTRESS. PICC LINE TO KEATON IN PLACE, AND IV TO RIGHT WRIST IN PLACE, INTACT AND PATENT. ALAS CATHETER INTACT, DRAINING YELLOW-COLORED URINE. DUE MEDS GIVEN TODAY. NO COMPLAINT OF NAUSEA/VOMITING. SURGICAL SITE INTACT, DRESSING C/D/I. SAFETY PRECS MAINTAINED: BED LOCKED AND IN LOWEST POSITION, CALL LIGHT IN REACH, SR UP X2. WILL ENDORSE TO VALVER RN FOR DANIELLE.
--- NOTE | 2020-04-30 19:20 | NUR ---
LABORER PIPELINE OPENING NOTE Patient awake in bed eating dinner, A/O x3. HOB elevated, on bedrest. Tele monitor reading sinus rhythm, 70s. Breathing even, clear, unlabored on 2 LPM NC. No acute distress or SOB noted. Skin warm, pink, dry. Surgical incisions noted on abdomen, clean and dry. Edema noted on scrotum. Hilario catheter in place, draining clear yellow urine, no sediment. Patient on soft diet, tolerating well. Appetite is fair. IV site right wrist 18g saline locked, patent and intact. No redness or infiltration. KEATON picc line, clean and intact. Bed in low position, wheels locked, side rails up x2, call light within reach.
[2020-04-30 20:00] VITALS: BP 134/64
[2020-04-30] MEDS: SENNOSIDES 8.6 MG TABLET PO SCH (21:10)
[2020-04-30] MEDS: MIRTAZAPINE 15 MG TABLET PO SCH (21:10)
[2020-04-30] MEDS: ATORVASTATIN 10 MG TABLET PO SCH (21:11)
[2020-04-30] MEDS: MORPHINE SULFATE INJ 2 MG/ML DISP.SYRIN IV PRN (21:24)
[2020-05-01] VITALS: BP 112/56
[2020-05-01] MEDS: CEFEPIME 2 GM in IV D5W 100 ML IV SCH ×2 (00:09→12:23)
[2020-05-01 00:34] VITALS: BP 111/54
[2020-05-01 04:00] VITALS: BP_SYST 112; BP_SYST 113; BP_DIAS 55
--- NOTE | 2020-05-01 06:11 | NUR ---
GAS CHECK PAD MAKER CLOSING NOTE Patient asleep in bed, A/O x3. Tele monitor reading sinus rhythm, 70s. Breathing even, clear, unlabored on 2 LPM NC. No acute distress or SOB noted. Surgical incisions noted on abdomen, clean and dry. Edema noted on scrotum. Hilario catheter in place, draining clear yellow urine, no sediment. Patient on soft diet, tolerating well. Appetite is fair. IV site right wrist 18g saline locked, patent and intact. No redness or infiltration. KEATON picc line, clean and intact. All needs met. Bed in low position, wheels locked, side rails up x2, call light within reach. Will endorse to oncoming nurse.
[2020-05-01] MEDS: BLOOD SUGAR DIAGNOSTIC 1 EACH STRIP IN SCH ×2 (06:35→12:22)
[2020-05-01 08:00] VITALS: BP 108/42
[2020-05-01] MEDS: ENSURE CLEAR 237 ML LIQUID (MIX BERRY) PO SCH (08:00)
--- NOTE | 2020-05-01 08:03 | NUR ---
RN OPENING NOTES RECEIVED PATIENT ON BED, AWAKE ALERT AND ORIENTED X 3. NO COMPLAINED OF PAIN AT THIS TIME. PATIENT IN NO APPARENT RESPIRATORY DISTRESS NOTED. WILL CONTINUE TO MONITOR.
--- NOTE | 2020-05-01 08:15 | NUR ---
RN NOTES BUN 90 MD IS AWARE. NO NEW ORDER AT THIS TIME.
[2020-05-01 09:40] LABS: CARBON DIOXIDE 19 mmol/L (21-32); CHLORIDE 109 mmol/L (98-107); CREATININE 1.9 mg/dL (0.6-1.3); GLUCOSE 138 mg/dL (74-106); POTASSIUM 3.3 mmol/L (3.5-5.1); SODIUM SERUM 139 mmol/L (136-145)
[2020-05-01 09:42] LABS: UREA NITROGEN, BLOOD 90 mg/dL (7-18)
[2020-05-01] MEDS: PANTOPRAZOLE 40 MG VIAL IV SCH (09:42)
[2020-05-01] MEDS: DOCUSATE SODIUM 100 MG CAPSULE PO SCH (09:43)
[2020-05-01] MEDS: PROSOURCE / PROSTAT (PYXIS) 30 ML UDC PO SCH (09:43)
[2020-05-01] MEDS ORDERED: IV NS 0.9% 1,000 ML IV PRN (10:00)
[2020-05-01] MEDS: METOPROLOL SUCCINATE 25 MG TAB.SR.24H PO SCH (11:00)
--- NOTE | 2020-05-01 11:39 | NUR ---
RN NOTES BP 108/42 P 76 METOPROLOL 25MG 1 TAB P.O. WAS NO ADMINISTERED. WILL CONTINUE TO MONITOR.
[2020-05-01 12:00] VITALS: BP 110/53
[2020-05-01] MEDS: INSULIN REGULAR, HUMAN 100 UNIT/ML 3 ML VIAL SQ PRN (12:32)
[2020-05-01 16:00] VITALS: BP 124/53
--- NOTE | 2020-05-01 19:41 | NUR ---
RN NOTES PATIENT IS ALERT AND ORIENTED X3. PATIENT IN NO APPARENT RESPIRATORY DISTRESS NOTED. NO COMPLAINED OF PAIN NOTED. PATIENT WAS GIVEN DISCHARGED INSTRUCTION AND PATIENT VERBALIZED UNDERSTANDING. PATIENT LEFT THE HOSPITAL IN MEDICALLY STABLE CONDITION. MANUFACTURING CONTROLS ENGINEER BY 2 EMT VIA AMBULANCE.
== END 2020-05-01 18:53 | DRG 329 ==
LOC: ER 16:58 → OBSER 04-12 01:46 → TRANSITION 04-12 06:15 → MED 04-12 14:08 → MEDSG2 04-13 02:30 → MED 04-16 22:26 → ICU 04-24 12:42 → TELE 04-25 18:52
PROVIDERS: ADMIT Registered Nurse; ATTEND Nurse Practitioner Acute Care
PROC: 02HV33Z Insertion of Infusion Device into Superior Vena Cava, Percutaneous Approach (ICD-10-PCS; principal; 2020-04-17)
PROC: B548ZZA Ultrasonography of Superior Vena Cava, Guidance (ICD-10-PCS; 2020-04-17)
PROC: 0DJ08ZZ Inspection of Upper Intestinal Tract, Via Natural or Artificial Opening Endoscopic (ICD-10-PCS; 2020-04-20)
PROC: 0DT80ZZ Resection of Small Intestine, Open Approach (ICD-10-PCS; 2020-04-24)
PROC: 0DTJ0ZZ Resection of Appendix, Open Approach (ICD-10-PCS; 2020-04-24)
PROC: 0D1A0ZA Bypass Jejunum to Jejunum, Open Approach (ICD-10-PCS; 2020-04-24)
DX: K95.89 Other complications of other bariatric procedure (principal); N17.0 Acute kidney failure with tubular necrosis; J69.0 Pneumonitis due to inhalation of food and vomit; G92 Toxic encephalopathy; J96.01 Acute respiratory failure with hypoxia; E44.0 Moderate protein-calorie malnutrition; K92.2 Gastrointestinal hemorrhage, unspecified; K46.0 Unspecified abdominal hernia with obstruction, without gangrene; E87.2 Acidosis; J90 Pleural effusion, not elsewhere classified; K56.50 Intestinal adhesions [bands], unspecified as to partial versus complete obstruction; E86.0 Dehydration; K59.09 Other constipation; R62.7 Adult failure to thrive; E78.5 Hyperlipidemia, unspecified; E83.52 Hypercalcemia; G89.29 Other chronic pain; I25.10 Atherosclerotic heart disease of native coronary artery without angina pectoris; Z68.26 Body mass index [BMI] 26.0-26.9, adult; D64.9 Anemia, unspecified; D69.6 Thrombocytopenia, unspecified; M89.9 Disorder of bone, unspecified; G47.00 Insomnia, unspecified; F32.9 Major depressive disorder, single episode, unspecified; F03.90 Unspecified dementia, unspecified severity, without behavioral disturbance, psychotic disturbance, mood disturbance, and anxiety; R53.1 Weakness; N18.9 Chronic kidney disease, unspecified; I12.9 Hypertensive chronic kidney disease with stage 1 through stage 4 chronic kidney disease, or unspecified chronic kidney disease; M62.50 Muscle wasting and atrophy, not elsewhere classified, unspecified site; E86.1 Hypovolemia; K52.9 Noninfective gastroenteritis and colitis, unspecified; E83.41 Hypermagnesemia; K21.00 Gastro-esophageal reflux disease with esophagitis, without bleeding; E83.9 Disorder of mineral metabolism, unspecified; N28.1 Cyst of kidney, acquired; K80.20 Calculus of gallbladder without cholecystitis without obstruction; E11.22 Type 2 diabetes mellitus with diabetic chronic kidney disease; Y83.8 Other surgical procedures as the cause of abnormal reaction of the patient, or of later complication, without mention of misadventure at the time of the procedure; Y92.89 Other specified places as the place of occurrence of the external cause; Y84.8 Other medical procedures as the cause of abnormal reaction of the patient, or of later complication, without mention of misadventure at the time of the procedure; N40.0 Benign prostatic hyperplasia without lower urinary tract symptoms; Z79.4 Long term (current) use of insulin; Z20.822 Contact with and (suspected) exposure to COVID-19
CPT/HCPCS: 36415; 36569; 36600; 71045-TC; 74018; 74250-TC; 80048-TC; 80053-TC; 80061-TC; 80076-TC; 81001; 82040-TC; 82550-TC; 82553; 82570-TC; 82962-TC; 83735-TC; 83970; 84100-TC; 84134-TC; 84155; 84155-TC; 84165; 84300-TC; 84443-TC; 84478-TC; 85025-TC; 85027-TC; 85610-TC; 85730-TC; 86850-TC; 87081-TC; 88304-TC; 88307-TC; 93307-TC; 94003-TC; 97112-TC; 97116-TC; 97530-TC; A4216; A4217; A4624; C1751; C9113; C9803; G0378; J0330; J0692; J1650; J1815; J2060; J2270; J2405; J2543; J2704; J3010; J3480; J3490; J7030; J7042; J7050; J7060; J7120; Q9963; U0003